=== PATIENT | female | born 1970 | race Caucasian/White ===

== ENCOUNTER 2022-09-02 12:04 | Outpatient (REF) | payer OTHER, SELFPAY ==
--- NOTE | ~2022-09-02 | XR_ITS ---
EXAMINATION: XR LUMBOSACRAL SPINE CLINICAL INFORMATION: Worsening low back pain COMPARISON: CT abdomen pelvis 11/19/2016 TECHNIQUE: Three views of the lumbosacral spine. FINDINGS: The vertebral bodies and posterior elements are unremarkable aside from some minimal spondylitic change plate changes most prominent at the inferior endplates of L2 and L3-L4.. The disc spaces are preserved and the vertebral alignment is normal. The paraspinal soft tissues are normal. XR/XR lumbar spine 2-3V IMPRESSION: Minimal degenerative changes as described above. No acute finding.
== END 2022-09-02 12:05 | disposition home or self-care (01) ==
LOC: HO.HHCX 12:04
PROVIDERS: Visit Provider Registered Nurse
DX: M54.16 Radiculopathy, lumbar region (principal)
CPT/HCPCS: 72100

== ENCOUNTER 2022-12-04 08:56 | Outpatient (REF) | payer OTHER, SELFPAY ==
[2022-12-04 14:16] LABS: MANUAL DIFF FLAG NO
[2022-12-04 14:25] LABS: Basophils Percent Auto 0.5 % (0-2); Eosinophils Absolute Auto 0.1 X10*3/uL (0.0-0.4); Eosinophils Percent Auto 2.2 % (0-4); Hemoglobin 13.9 g/dl (12.0-16.0); Imm Gran Abs Auto 0.01 X10*3/uL (0.00-0.03); Imm Gran Pct Auto 0.2 % (0.0-0.4); Lymphocytes Absolute Auto 1.8 X10*3/uL (1.2-4.9); Lymphocytes Percent Auto 32.2 % (20-40); Mean Corpuscular HGB Conc 32.3 g/dl (31.0-35.0); Mean Corpuscular Hemoglobin 30.2 pg (27.0-33.0); Mean Corpuscular Volume 93.5 fL (80.0-98.0); Mean Platelet Volume 9.9 fL (9.4-12.3); Monocytes Absolute Auto 0.4 X10*3/uL (0.1-1.2); Monocytes Percent Auto 7.9 % (2-11); Neutrophils Absolute Auto 3.2 x10*3/uL (2.0-8.3); Platelet Count 364 X10*3/uL (160-400); Red Cell Distribution Width 13.7 % (11.0-16.0); White Blood Count 5.6 X10*3/uL (4.8-10.8)
[2022-12-04 14:56] LABS: Alanine Aminotransferase 23 U/L (0-31); Albumin Level 4.3 g/dL (3.5-5.0); Alkaline Phosphatase 82 U/L (39-117); Anion Gap 16 (12-20); Aspartate Amino Transferase 21 U/L (5-31); Bilirubin Total 0.6 mg/dL (0.0-1.0); Blood Urea Nitrogen 22 mg/dL (9-16); Calcium 9.8 mg/dL (8.4-10.2); Carbon Dioxide 21 mmol/L (22-29); Chloride 108 mmol/L (96-108); Cholesterol 225 mg/dL (<200); Estimated Glomerular Filt Rate > 60; Glucose Fasting 103 mg/dL (60-99); HDL Cholesterol 47 mg/dL (>40); LDL Cholesterol Calculated 147 mg/dL (<100); Potassium 3.6 mmol/L (3.3-5.1); Sodium 141 mmol/L (135-145); TSH reflex Free T4 0.87 uIU/mL (0.32-4.0); Total Protein 7.9 g/dL (6.5-8.0); Triglycerides 155 mg/dL (<150)
[2022-12-04 15:10] LABS: Estimated Average Glucose 100 mg/dL; Hemoglobin A1c % 5.1 % (<6.0)
[2022-12-05 14:40] LABS: ~HepC Num1 0.11 S/CO (0.00-0.79); ~Hepatitis C Antibody Nonreactive (Nonreactive)
[2022-12-08 20:04] LABS: HIV RNA PCR Qn Copies Not Detected Copies/mL; HIV RNA PCR Qn Log Copies Not Detected Log cps/mL
== END 2022-12-04 08:57 | disposition home or self-care (01) ==
LOC: HO.CHCLDS 08:56
PROVIDERS: Visit Provider Internal Medicine
DX: I10 Essential (primary) hypertension (principal); E78.2 Mixed hyperlipidemia
CPT/HCPCS: 36415; 80053; 80061; 83036; 84443; 85025; 86803; 87536; 87900

== ENCOUNTER → 2022-12-22 14:00 | Outpatient (BNVA) | payer OTHER, SELFPAY | PROVIDERS: PCP Internal Medicine; Visit Provider Physician Assistant ==

== ENCOUNTER 2022-12-23 14:03 | Outpatient (REF) | payer OTHER, SELFPAY ==
--- NOTE | ~2022-12-23 | MM_ITS ---
EXAMINATION: MM DIAGNOSTIC DIGITAL BREAST TOMOSYNTHESIS, BILATERAL CLINICAL INFORMATION: 52-year-old female complaining of bilateral palpable foci in the upper inner quadrants of both breasts. COMPARISON: Mammography: 06/25/2016 TECHNIQUE: Digital breast tomosynthesis is performed in both the craniocaudal and mediolateral oblique views along with computer-aided detection (CAD). Synthesized 2D images are generated from the tomosynthesis. FINDINGS: The breasts are heterogeneously dense, which may obscure small masses (ACR BI-RADS breast composition Category c). There are no suspicious masses, suspicious grouped calcifications, or areas of architectural distortion. Stable loosely grouped punctate calcifications in the superior right breast. The parenchymal pattern is stable from prior exams. No mammographic correlate to the foci of palpable concern outer inner breasts bilaterally. Recommend these areas be evaluated by ultrasound. MM/MM tomosynthesis diagnostic BI IMPRESSION: No significant mammographic findings to explain palpable abnormalities upper inner quadrant both breasts. These areas will be evaluated by ultrasound. Patient will return for this study. ASSESSMENT: BI-RADS BI-RADS 0 - Incomplete: Needs additional Imaging. RECOMMENDATION: Additional Imaging required Results were provided to the patient at time of visit by the technologist. This patient's information was entered into a reminder system with a target due date for their next mammogram.
== END 2022-12-23 14:04 | disposition home or self-care (01) ==
LOC: HO.MAMMO 14:03
PROVIDERS: Visit Provider Internal Medicine
DX: N63.12 Unspecified lump in the right breast, upper inner quadrant (principal)
CPT/HCPCS: 77062; 77066

== ENCOUNTER → 2022-12-23 14:30 | Outpatient (BNV) | payer OTHER, SELFPAY | PROVIDERS: Visit Provider Radiology Diagnostic Radiology | DX: R92.2 Inconclusive mammogram (principal) | CPT/HCPCS: 77062; 77066 ==

== ENCOUNTER 2023-01-15 10:33 | Outpatient (AMB) | payer OTHER, SELFPAY ==
--- NOTE | 2023-01-15 10:36 | A.OFFVIS_ITS ---
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 BMI 38.5 Allergies latex Allergy (Verified 01/15/23 10:37) Unknown Medication List - Last Reconciled 01/15/23 by Tung Salgado MD albuterol sulfate 90 mcg/actuation (Ventolin HFA) inhalation atorvastatin 20 mg PO DAILY duloxetine 30 mg PO BID fluticasone propionate 110 mcg/actuation (Flovent HFA) 2 puffs inhalation BID hydroxyzine HCl 25 mg PO TID ibuprofen 800 mg PO TID lisinopril-hydrochlorothiazide 20-25 mg 1 tab PO DAILY loratadine 10 mg PO DAILY melatonin mg PO omeprazole 20 mg PO DAILY HPI [employer]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 BMI 38.5 HPI Details Start time: 10.30am, End time: 11.18am ?I spent 43 minutes speaking with the patient on the phone plus an additional 5 minutes reviewing and updating records for a total of 48 minutes HPI Comments History of Present Illness Details Previous weight loss efforts: self diets and exercise: Wakes up: 10.30am, Sleeps: 1am Breakfast: skips Lunch: skips Dinner: 4pm (pork, rice, beans, tuna) Snacks: 2 snacks before dinner (chips, lettuce and tomatoes, salami and eggs), 10pm (cereal) Exercise: none, Fluids: Fluids: occasionally one cup of coffee (milk and sugar), tea: none, soda: none, juice: Regular Gatorade, ETOH: none PFSH Medical History (Updated 01/15/23 @ 10:43 by Tung Salgado MD) Insomnia Hyperlipidemia GERD (gastroesophageal reflux disease) Fibromyalgia Anxiety Depression Asthma Hypertension Family History (Updated 12/22/22 @ 14:16 by MARIO Toro) Mother No problems noted. Father Cancer Son No problems noted. Daughter No problems noted. Son No problems noted. Daughter No problems noted. Daughter No problems noted. Social History (Updated 12/22/22 @ 14:18 by MARIO Toro) Household Members: Children Housing: House Alcohol intake: current Alcohol intake frequency: holidays/special occasions only Patient Tobacco Use Status: Current everyday Tobacco user Substance Use Type: Marijuana Current occupational status: unemployed Assessment & Plan Assessment & Plan (1) Obesity: Code(s): E66.9 - Obesity, unspecified Plan: 1.? Plan for lap sleeve gastrectomy. If diaphragmatic or ventral hernias are present at time of surgery, these will be repaired laparoscopically as well. Risks and complications were discussed in detail including possible conversion to an open procedure, anastomotic leak, bleeding requiring transfusion, small bowel obstruction, , DVT and pulmonary embolism, cardiac, or pulmonary complications, as oysterman complications such as anastomotic ulcer, insufficient weight loss and vitamin deficiencies. I emphasized the importance of close follow-up, adherence to instructions and good communication. 2. Nutritional counseling. Start with 2 Isopure protein (buy at [employer], [employer], [employer], [employer]) shakes (HALF scoop EACH in 8oz water) at 11am-1pm and 2pm-4pm, dinner at 5pm (8 forks of protein and 8 forks of salad/vegetables) and 2 protein bars (Zone Perfect protein bars, buy at [employer], ?[employer], [employer], or [employer]) at 7pm- 9pm and 10pm-12am. So you do 2 protein shakes, 2 protein bars and one meal per day. Meal to include lean meat (beef, fish, pork, turkey, chicken), or indonesian yogurt, or egg whites, or beans with a salad with olive oil and fruits (berries, pears, apples, kiwi). Avoid salt, breads, potatoes, rice, pasta, desserts. 3. Each shake would be drunk slowly, like coffee in a period of 2 hours. 4. Cut each bar in 4 pieces and eat each piece in 30min ?to make each bar last 2 hours. 5. I emphasized the importance of measuring accurately the food portion and measure it when serving the food in plate 6. The meal portions include 8 full-size forks of meat and 8 full-size forks of salad. You always eat the meat portion but you can replace up to 4 forks for salad/vegetables with rice, potatoes or pasta, or a fruit ?if you like. The less you do it the better weight loss will be. 7. One full-size fork is what it can be scooped on the fork without falling aside and not what can be bit with the fork. Use regular forks like those you find in a typical restaurant. 8.? Please send me weight measurements as soon as possible and then once a week. Always include your diet and exercise plan. 9. Please purchase a stationary bike, elliptical or treadmill at home that can track calories. Let me know if you do so I can give you an exercise plan. 10.?If you are not on menopause, it is important of avoiding and for at least 18 months postoperatively and has been discussed at the infosession. 11. Goal is to lose at least 1.5-2lbs per week 12. Goal to lose 10% of your weight before surgery, which is about 22lbs. Ultimate weight goal: 202lbs before surgery 13. Please follow the diet plan exactly without any change. If you don't like something about the plan or you feel hungry you need to communicate with me so I can help you revise the plan. You should not change the plan yourself. (2) BMI 38.0-38.9,adult: Code(s): Z68.38 - Body mass index [BMI] 38.0-38.9, adult (3) Hypertension: Code(s): I10 - Essential (primary) hypertension (4) Asthma: Code(s): J45.909 - Unspecified asthma, uncomplicated (5) GERD (gastroesophageal reflux disease): Code(s): K21.9 - Gastro-esophageal reflux disease without esophagitis (6) Hyperlipidemia: Code(s): E78.5 - Hyperlipidemia, unspecified Orders: Orders Zinc Today E66.9 - Obesity, unspecified, E78.5 - Hyperlipidemia, unspecified, I10 - Essential (primary) hypertension, J45.909 - Unspecified asthma, uncomplicated, K21.9 - Gastro-esophageal reflux disease without esophagitis, Z68.38 - Body mass index [BMI] 38.0-38.9, adult Comprehensive Met. Panel Today E66.9 - Obesity, unspecified, E78.5 - Hyperlipidemia, unspecified, I10 - Essential (primary) hypertension, J45.909 - Unspecified asthma, uncomplicated, K21.9 - Gastro-esophageal reflux disease without esophagitis, Z68.38 - Body mass index [BMI] 38.0-38.9, adult C Reactive Protein Today E66.9 - Obesity, unspecified, E78.5 - Hyperlipidemia, unspecified, I10 - Essential (primary) hypertension, J45.909 - Unspecified asthma, uncomplicated, K21.9 - Gastro-esophageal reflux disease without esophagitis, Z68.38 - Body mass index [BMI] 38.0-38.9, adult TSH reflex Free T4 Today E66.9 - Obesity, unspecified, E78.5 - Hyperlipidemia, unspecified, I10 - Essential (primary) hypertension, J45.909 - Unspecified asthma, uncomplicated, K21.9 - Gastro-esophageal reflux disease without esophagitis, Z68.38 - Body mass index [BMI] 38.0-38.9, adult H Pylori Breath Test Today E66.9 - Obesity, unspecified, E78.5 - Hyperlipidemia, unspecified, I10 - Essential (primary) hypertension, J45.909 - Unspecified asthma, uncomplicated, K21.9 - Gastro-esophageal reflux disease without esophagitis, Z68.38 - Body mass index [BMI] 38.0-38.9, adult US abdomen comp w elastography Today E66.9 - Obesity, unspecified, E78.5 - Hyperlipidemia, unspecified, I10 - Essential (primary) hypertension, J45.909 - Unspecified asthma, uncomplicated, K21.9 - Gastro-esophageal reflux disease without esophagitis, Z68.38 - Body mass index [BMI] 38.0-38.9, adult XR chest 2V Today E66.9 - Obesity, unspecified, E78.5 - Hyperlipidemia, unspecified, I10 - Essential (primary) hypertension, J45.909 - Unspecified asthma, uncomplicated, K21.9 - Gastro-esophageal reflux disease without esophagitis, Z68.38 - Body mass index [BMI] 38.0-38.9, adult ECG 12 lead EKG Today E66.9 - Obesity, unspecified, E78.5 - Hyperlipidemia, unspecified, I10 - Essential (primary) hypertension, J45.909 - Unspecified asthma, uncomplicated, K21.9 - Gastro-esophageal reflux disease without esophagitis, Z68.38 - Body mass index [BMI] 38.0-38.9, adult FL upper GI w air Today E66.9 - Obesity, unspecified, E78.5 - Hyperlipidemia, unspecified, I10 - Essential (primary) hypertension, J45.909 - Unspecified asthma, uncomplicated, K21.9 - Gastro-esophageal reflux disease without esophagitis, Z68.38 - Body mass index [BMI] 38.0-38.9, adult Insulin Today E66.9 - Obesity, unspecified, E78.5 - Hyperlipidemia, unspecified, I10 - Essential (primary) hypertension, J45.909 - Unspecified asthma, uncomplicated, K21.9 - Gastro-esophageal reflux disease without esophagitis, Z68.38 - Body mass index [BMI] 38.0-38.9, adult Lipid Panel Today E66.9 - Obesity, unspecified, E78.5 - Hyperlipidemia, unspecified, I10 - Essential (primary) hypertension, J45.909 - Unspecified asthma, uncomplicated, K21.9 - Gastro-esophageal reflux disease without esophagitis, Z68.38 - Body mass index [BMI] 38.0-38.9, adult IRON PROFILE Today E66.9 - Obesity, unspecified, E78.5 - Hyperlipidemia, unspecified, I10 - Essential (primary) hypertension, J45.909 - Unspecified asthm a, uncomplicated, K21.9 - Gastro-esophageal reflux disease without esophagitis, Z68.38 - Body mass index [BMI] 38.0-38.9, adult Complete Blood Count Auto Diff Today E66.9 - Obesity, unspecified, E78.5 - Hyperlipidemia, unspecified, I10 - Essential (primary) hypertension, J45.909 - Unspecified asthma, uncomplicated, K21.9 - Gastro-esophageal reflux disease without esophagitis, Z68.38 - Body mass index [BMI] 38.0-38.9, adult Vitamin B12 and Folate Today E66.9 - Obesity, unspecified, E78.5 - Hyperlipidemia, unspecified, I10 - Essential (primary) hypertension, J45.909 - Unspecified asthma, uncomplicated, K21.9 - Gastro-esophageal reflux disease without esophagitis, Z68.38 - Body mass index [BMI] 38.0-38.9, adult Vitamin B1 Today E66.9 - Obesity, unspecified, E78.5 - Hyperlipidemia, unspecified, I10 - Essential (primary) hypertension, J45.909 - Unspecified asthma, uncomplicated, K21.9 - Gastro-esophageal reflux disease without esophagitis, Z68.38 - Body mass index [BMI] 38.0-38.9, adult Vitamin A Today E66.9 - Obesity, unspecified, E78.5 - Hyperlipidemia, unspecified, I10 - Essential (primary) hypertension, J45.909 - Unspecified asthma, uncomplicated, K21.9 - Gastro-esophageal reflux disease without esophagitis, Z68.38 - Body mass index [BMI] 38.0-38.9, adult Ferritin Today E66.9 - Obesity, unspecified, E78.5 - Hyperlipidemia, unspecified, I10 - Essential (primary) hypertension, J45.909 - Unspecified asthma, uncomplicated, K21.9 - Gastro-esophageal reflux disease without esophagitis, Z68.38 - Body mass index [BMI] 38.0-38.9, adult PTHI Today E66.9 - Obesity, unspecified, E78.5 - Hyperlipidemia, unspecified, I10 - Essential (primary) hypertension, J45.909 - Unspecified asthma, uncomplicated, K21.9 - Gastro-esophageal reflux disease without esophagitis, Z68.38 - Body mass index [BMI] 38.0-38.9, adult Vitamin D 25-OH Total Today E66.9 - Obesity, unspecified, E78.5 - Hyperlipidemia, unspecified, I10 - Essential (primary) hypertension, J45.909 - Unspecified asthma, uncomplicated, K21.9 - Gastro-esophageal reflux disease without esophagitis, Z68.38 - Body mass index [BMI] 38.0-38.9, adult Hemoglobin A1c Today E66.9 - Obesity, unspecified, E78.5 - Hyperlipidemia, unspecified, I10 - Essential (primary) hypertension, J45.909 - Unspecified asthma, uncomplicated, K21.9 - Gastro-esophageal reflux disease without esophagitis, Z68.38 - Body mass index [BMI] 38.0-38.9, adult RT home sleep study Today E66.9 - Obesity, unspecified, E78.5 - Hyperlipidemia, unspecified, I10 - Essential (primary) hypertension, J45.909 - Unspecified asth ma, uncomplicated, K21.9 - Gastro-esophageal reflux disease without esophagitis, Z68.38 - Body mass index [BMI] 38.0-38.9, adult Referrals Behavioral Health Referral E66.9 - Obesity, unspecified, E78.5 - Hyperlipidemia, unspecified, I10 - Essential (primary) hypertension, J45.909 - Unspecified asthma, uncomplicated, K21.9 - Gastro-esophageal reflux disease without esophagitis, Z68.38 - Body mass index [BMI] 38.0-38.9, adult Nutrition/Dietitian Referral E66.9 - Obesity, unspecified, E78.5 - Hyperlipidemia, unspecified, I10 - Essential (primary) hypertension, J45.909 - Unspecified asthma, uncomplicated, K21.9 - Gastro-esophageal reflux disease without esophagitis, Z68.38 - Body mass index [BMI] 38.0-38.9, adult Telehealth Telehealth Location of provider rendering services: practice address Location of patient: address on file Patient Identification confirmed using: Name, : Yes Telehealth method: voice only Patient verbally consented to treatment: Yes Patient verbally consented to billing insurance company: Yes Patient informed of any privacy concerns related to visit: Yes Minutes spent on Phone/Video with Pt.: 48 Coding Level of Care Code Tele New Pt Level 4 (10969) Diagnoses Obesity E66.9 BMI 38.0-38.9,adult Z68.38 Hypertension I10 Asthma J45.909 GERD (gastroesophageal reflux disease) K21.9 Hyperlipidemia E78.5 Time Spent (min) 48
[2023-01-15 10:50] VITALS: BMI 38.5
== END 2023-01-15 11:20 | disposition home or self-care (01) ==
LOC: HO.HBS 10:33
PROVIDERS: PCP Internal Medicine; Visit Provider Surgery
DX: E66.9 Obesity, unspecified (principal); Z68.38 Body mass index [BMI] 38.0-38.9, adult; I10 Essential (primary) hypertension; J45.909 Unspecified asthma, uncomplicated; K21.9 Gastro-esophageal reflux disease without esophagitis; E78.5 Hyperlipidemia, unspecified
CPT/HCPCS: 99443

== ENCOUNTER 2023-01-22 10:22 | Outpatient (REF) | payer OTHER, SELFPAY ==
--- NOTE | ~2023-01-22 | US_ITS ---
EXAMINATION: US DIAGNOSTIC ULTRASOUND BREAST, BILATERAL CLINICAL INFORMATION: 52-year-old female complaining of bilateral palpable foci in the upper inner quadrants of both breasts.. COMPARISON: 12/23/2022 diagnostic mammography for same indication. Patient return for diagnostic ultrasound. TECHNIQUE: Ultrasound of the bilateral breasts is performed with real-time perrin scale imaging and color Doppler. Attention was given to the palpable foci left breast 8-10 o'clock axis, and right breast 2-4 o'clock axis. FINDINGS: There is no focal suspicious finding bilaterally. There is no solid mass, architectural abnormality, duct ectasia, or edema in the soft tissue planes. There are no cystic abnormalities. Only normal breast parenchyma is identified in both breasts. US/US breast BI limited mamm only IMPRESSION: No findings suspicious for malignancy bilaterally. Palpable foci in the upper inner quadrants of both breasts demonstrate no mammographic or sonographic correlate. Recommend clinical management. Biopsy of a palpable abnormality without imaging correlation must be determined on a clinical basis. Otherwise, recommend return to routine screening mammography. Findings discussed with the patient by the technologist. ASSESSMENT: BI-RADS 1: Negative RECOMMENDATION: 1. Patient should be managed based on the clinical impression. Decision to proceed with biopsy should be based on clinical grounds and degree of clinical concern. 2. Otherwise, routine annual screening mammography. This patient's information was entered into a reminder system with a target due date for their next mammogram.
== END 2023-01-22 10:23 | disposition home or self-care (01) ==
LOC: HO.MAMMO 10:22
PROVIDERS: PCP Internal Medicine; Visit Provider Internal Medicine
DX: N63.12 Unspecified lump in the right breast, upper inner quadrant (principal); N63.22 Unspecified lump in the left breast, upper inner quadrant
CPT/HCPCS: 76642

== ENCOUNTER → 2023-01-22 10:30 | Outpatient (BNV) | payer OTHER, SELFPAY | PROVIDERS: PCP Internal Medicine; Visit Provider Radiology Diagnostic Radiology | DX: D24.9 Benign neoplasm of unspecified breast (principal) | CPT/HCPCS: 76642 ==

== ENCOUNTER 2023-02-11 09:34 | Outpatient (REF) | payer OTHER, SELFPAY ==
--- NOTE | ~2023-02-11 | XR_ITS ---
EXAMINATION: XR CHEST CLINICAL INFORMATION: Obesity, unspecified COMPARISON: None available. TECHNIQUE: 2 views of the chest were obtained. 10:30 AM FINDINGS: No significant abnormality is noted involving the heart, lungs, mediastinum, bony thorax or soft tissues. XR/XR chest 2V IMPRESSION: No acute cardiopulmonary disease.
--- NOTE | ~2023-02-11 | US_ITS ---
EXAMINATION: US COMPLETE ABDOMEN WITH LIVER ELASTOGRAPHY CLINICAL INFORMATION: Obesity. COMPARISON: Abdominal ultrasound dated 03/25/2017; CT abdomen and pelvis dated 11/19/2016. TECHNIQUE: Real-time imaging of the abdominal viscera. Noninvasive ultrasound liver fibrosis assessment is performed using [employer]akenna Elast[employer] point quantification shear wave elastography (2D-SWE) with a C5-2 MHz transducer. Multiple elastography samples are obtained. FINDINGS: PANCREAS: Limited. The visualized pancreatic head and body are normal in appearance. The remainder of the pancreas is obscured from visualization by the overlying bowel gas. ABDOMINAL AORTA: The proximal, middle, and distal aortic segments are normal in caliber. INFERIOR VENA CAVA: Visualized portions are normal. LIVER: The liver demonstrates normal size, contour and increased echogenicity. No focal lesion or intrahepatic biliary duct dilatation. The right lobe measures 14.0 cm in length. The left lobe measures 10.1 cm in length. Portal flow is towards the liver (hepatopetal). Shear wave liver elastography median stiffness is 1.50 m/s (reference: normal median stiffness is 1.3 m/s or less). IQR/median stiffness to assess sampling precision is 0.12 (reference: good quality data set is IQR/median stiffness of 0.15 or less). GALLBLADDER: Normal. The gallbladder is physiologically distended without evidence of stones, sludge, polyps, wall thickening or pericholecystic fluid. COMMON BILE DUCT: Normal in caliber measuring 0.4 cm in diameter. RIGHT KIDNEY: Normal. No hydronephrosis. No renal calculi or focal parenchymal lesions. The kidney measures 11.6 cm in maximum dimension. LEFT KIDNEY: Normal. No hydronephrosis. No renal calculi or focal parenchymal lesions. The kidney measures 10.2 cm in maximum dimension. SPLEEN: Normal. The spleen measures 8.6 cm in maximum dimension. FREE FLUID: None. US/US abdomen comp w elastography IMPRESSION: 1. There is generalized increase in hepatic echotexture, consistent with fatty infiltration or hepatocellular disease. Please correlate clinically. No focal hepatic mass or intrahepatic biliary dilatation is seen. 2. Liver elastography: In the absence of other known clinical signs, measurements rule out compensated advanced chronic liver disease. If there are known clinical signs, further testing may be needed for confirmation. 3. Technically limited ultrasound examination of the pancreas. REFERENCE: Society of Radiologists in Ultrasound Liver Stiffness Thresholds (2020): LIVER STIFFNESS THRESHOLDS: *Liver Stiffness equal or less than 1.3 m/s: High probability of being normal. *Liver Stiffness less than 1.7 m/s: In the absence of other known clinical signs, rules out compensated advanced chronic liver disease. *Liver Stiffness 1.7-2.1 m/s: Suggestive of compensated advanced chronic liver disease but need further test for confirmation. *Liver Stiffness over 2.1 m/s: Rules in compensated advanced chronic liver disease. *Liver Stiffness over 2.4 m/s: Suggestive of clinically significant portal hypertension. QUALITY OF DATA SET: *IQR/Median value equal or less than 0.15 implies a quality data set. *IQR/Median value over 0.15 implies a poor quality data set. SIGNIFICANT CHANGE FROM PRIOR EXAM: Significant change if liver stiffness measurement is 10% or greater from prior exam. OTHER CONSIDERATIONS: The stage of liver fibrosis may be overestimated in the setting of acute hepatitis, liver inflammation, elevated liver function tests, hepatic vascular congestion, obstructive cholestasis, non-fasting state, and infiltrative diseases such as amyloidosis and lymphoma. In some patients with NAFLD, the liver stiffness thresholds for compensated advanced chronic liver disease may be lower. In causes other than viral hepatitis and NAFLD, liver stiffness thresholds are not well established.
--- NOTE | ~2023-02-11 | FL_ITS ---
EXAMINATION: XR FLUOROSCOPY UPPER GI WITH AIR CLINICAL INFORMATION: Preop evaluation prior to bariatric surgery COMPARISON: None TECHNIQUE: Fluoroscopic air contrast upper GI examination was performed utilizing standard techniques with thin and thick barium and effervescent granules. Numerous spot images were obtained. FINDINGS: Lateral cine images of the oropharynx and hypopharynx demonstrate normal swallow mechanism with normal epiglottic inversion and soft palate elevation. No tracheal penetration, glottic or subglottic aspiration identified. No nasopharyngeal reflux present. Hypopharyngeal structures appear normal without evidence of mass or diverticulum. There was no significant cricopharyngeal achalasia. Dual and single contrast images of the esophagus demonstrate normal caliber, contour, and mucosal pattern. No evidence stricture, mass, or ulcerations are identified. Esophageal peristalsis was normal. A small type I hiatal hernia is present. No significant gastroesophageal reflux was seen during the course of the examination and on reflux views. Dual contrast and single contrast images of the stomach demonstrated normal contour and mucosal pattern without evidence of mass, ulceration, or other abnormality. Contrast freely passed into the gastric antrum and duodenal bulb without delay. Single and air-contrast images of the duodenal bulb demonstrate no abnormality. The duodenal sweep has a normal appearance, course, and mucosal fold appearance. The imaged proximal jejunum has a normal fold pattern and caliber. FLUOROSCOPY TIME: 3 minutes Number of Spot Images: 9 Number of Cine: 9 DOSE AREA PRODUCT: 2463 uGy-m2 (microgray-meter squared) FL/FL upper GI w air IMPRESSION: 1. Small type I hiatal hernia otherwise normal examination This procedure was performed by Karlos Washington PA-C, and supervised by Dr. Hargrove
--- NOTE | 2023-02-11 10:39 | ECG_ITS ---
Test Reason : obesity Blood Pressure : / mmHG Vent. Rate : 069 BPM Atrial Rate : 069 BPM P-R Int : 138 ms QRS Dur : 088 ms QT Int : 402 ms P-R-T Axes : 054 069 030 degrees QTc Int : 430 ms Sinus rhythm with Premature atrial complexes Otherwise normal ECG When compared with ECG of 13-DEC-2010 12:20, Premature atrial complexes are now Present Referred By: Tung Salgado Electronically Signed By:TERRA OVIEDO MD
[2023-02-11 10:52] LABS: MANUAL DIFF FLAG NO
[2023-02-11 12:03] LABS: Basophils Percent Auto 0.3 % (0-2); Eosinophils Absolute Auto 0.1 X10*3/uL (0.0-0.4); Eosinophils Percent Auto 1.7 % (0-4); Hematocrit 42.8 % (37.0-47.0); Hemoglobin 13.9 g/dl (12.0-16.0); Imm Gran Abs Auto 0.02 X10*3/uL (0.00-0.03); Imm Gran Pct Auto 0.3 % (0.0-0.4); Lymphocytes Absolute Auto 1.6 X10*3/uL (1.2-4.9); Lymphocytes Percent Auto 26.9 % (20-40); Mean Corpuscular HGB Conc 32.5 g/dl (31.0-35.0); Mean Corpuscular Hemoglobin 30.2 pg (27.0-33.0); Mean Corpuscular Volume 92.8 fL (80.0-98.0); Mean Platelet Volume 10.2 fL (9.4-12.3); Monocytes Absolute Auto 0.4 X10*3/uL (0.1-1.2); Monocytes Percent Auto 6.1 % (2-11); Neutrophils Absolute Auto 3.7 x10*3/uL (2.0-8.3); Neutrophils Percent Auto 64.7 % (45-73); Platelet Count 317 X10*3/uL (160-400); Red Blood Count 4.61 X10*6/uL (4.20-5.50); Red Cell Distribution Width 13.3 % (11.0-16.0); White Blood Count 5.8 X10*3/uL (4.8-10.8)
[2023-02-11 12:16] LABS: Estimated Average Glucose 105 mg/dL; Hemoglobin A1c % 5.3 % (<6.0)
[2023-02-11 13:04] LABS: Alanine Aminotransferase 17 U/L (0-31); Albumin Level 4.1 g/dL (3.5-5.0); Alkaline Phosphatase 82 U/L (39-117); Anion Gap 11 (12-20); Aspartate Amino Transferase 17 U/L (5-31); Bilirubin Total 0.5 mg/dL (0.0-1.0); Blood Urea Nitrogen 10 mg/dL (9-16); C Reactive Protein 0.38 mg/dL (< or = 0.50); Calcium 9.2 mg/dL (8.4-10.2); Carbon Dioxide 25 mmol/L (22-29); Chloride 109 mmol/L (96-108); Cholesterol 200 mg/dL (<200); Estimated Glomerular Filt Rate > 60; Glucose Random 100 mg/dL (60-115); HDL Cholesterol 45 mg/dL (>40); Iron 96 mcg/dL (30-160); LDL Cholesterol Calculated 129 mg/dL (<100); Percent Iron Saturation 32 % (15-50); Sodium 141 mmol/L (135-145); Total Iron Binding Capacity 297 mcg/dL (228-428); Total Protein 7.6 g/dL (6.5-8.0); Triglycerides 134 mg/dL (<150); Unsaturated Iron Binding 201 ug/dL
[2023-02-11 13:06] LABS: Ferritin 89 ng/mL (10-250); Insulin 15 uU/mL (2-29); TSH reflex Free T4 0.84 uIU/mL (0.32-4.0); Vitamin D 25-OH Total 15.3 ng/mL (>30)
[2023-02-11 13:12] LABS: Folate 13.9 ng/mL (> or = 4.0); Vitamin B12 469 pg/mL (200-900)
[2023-02-13 16:13] LABS: Zinc 78 mcg/dL (60-130)
[2023-02-15 17:17] LABS: Calcium (PTHI) 9.3 mg/dL (8.6-10.4); PTHI 66 pg/mL (16-77)
[2023-02-16 17:43] LABS: Vitamin A 33 mcg/dL (38-98)
[2023-02-17 12:53] LABS: Vitamin B1 7 nmol/L (8-30)
== END 2023-02-11 09:35 | disposition home or self-care (01) ==
LOC: HO.US 09:34
PROVIDERS: PCP Internal Medicine; Visit Provider Surgery
DX: E66.9 Obesity, unspecified (principal); Z68.38 Body mass index [BMI] 38.0-38.9, adult; I10 Essential (primary) hypertension; J45.909 Unspecified asthma, uncomplicated; K21.9 Gastro-esophageal reflux disease without esophagitis; E78.5 Hyperlipidemia, unspecified
CPT/HCPCS: 36415; 71046; 74246; 76705; 76981; 80053; 80061; 82306; 82607; 82728; 82746; 83036; 83525; 83540; 83970; 84425; 84443; 84590; 84630; 85025; 86140; 93005

== ENCOUNTER → 2023-02-11 10:43 | Outpatient (BNV) | payer OTHER, SELFPAY | PROVIDERS: PCP Internal Medicine; Visit Provider Radiology Diagnostic Radiology | DX: E66.9 Obesity, unspecified (principal) | CPT/HCPCS: 74246 ==

== ENCOUNTER 2023-02-15 08:20 | Outpatient (AMB) | payer OTHER, SELFPAY ==
--- NOTE | 2023-02-15 10:41 | MHC.OFFVISWM ---
Intake Intake Visit Reasons: TV Follow Up SWL - 1ST Allergies latex Allergy (Verified 01/15/23 10:37) Unknown HPI TV Follow Up SWL - 1ST HPI Details Start time: 10.33am, End time: 11.03am ?I spent 25 minutes speaking with the patient on the phone plus an additional 5 minutes reviewing and updating records for a total of 30 minutes HPI Comments History of Present Illness Details Overall weight loss: 6lbs, or 2.68% TBWL Is doing 2 Isopure INFUSION protein shakes (HALF scoop in water), Z [facility] Medical History (Updated 02/11/23 @ 16:01 by Tung Salgado MD) Insomnia Hyperlipidemia GERD (gastroesophageal reflux disease) Fibromyalgia Anxiety Depression Asthma Hypertension Family History (Updated 12/22/22 @ 14:16 by MARIO Toro) Mother No problems noted. Father Cancer Son No problems noted. Daughter No problems noted. Son No problems noted. Daughter No problems noted. Daughter No problems noted. Social History (Updated 12/22/22 @ 14:18 by MARIO Toro) Household Members: Children Housing: House Alcohol intake: current Alcohol intake frequency: holidays/special occasions only Patient Tobacco Use Status: Current everyday Tobacco user Substance Use Type: Marijuana Current occupational status: unemployed Assessment & Plan Assessment & Plan (1) Obesity: Code(s): E66.9 - Obesity, unspecified Plan: 1. Please follow the correct plan with 2 Isopure protein (buy at [employer]) shakes (HALF scoop EACH in 8oz water) at 11am-1pm and 2pm-4pm, dinner at 5pm (8 forks of protein and 8 forks of salad/vegetables) and 2 CELEBRATE protein bars (buy at the [facility]) at 7pm-9pm and 10pm-12am. So you do 2 protein shakes, 2 protein bars and one meal per day. Meal to include lean meat (beef, fish, pork, turkey, chicken), or spanish yogurt, or egg whites, or beans with a salad with olive oil and fruits (berries, pears, apples, kiwi). Avoid salt, breads, potatoes, rice, pasta, desserts. 2. Each shake would be drunk slowly, like coffee in a period of 2 hours. 3. Cut each bar in 4 pieces and eat each piece in 30min ?to make each bar last 2 hours. 4. I emphasized the importance of measuring accurately the food portion and measure it when serving the food in plate 5. The meal portions include 8 full-size forks of meat and 8 full-size forks of salad. You always eat the meat portion but you can replace up to 4 forks for salad/vegetables with rice, potatoes or pasta, or a fruit ?if you like. The less you do it the better weight loss will be. 6. One full-size fork is what it can be scooped on the fork without falling aside and not what can be bit with the fork. Use regular forks like those you find in a typical restaurant. 7. Please send me a picture of your meal daily after you measure it and before you eat it. 8.? Please send me weight measurements weekly on 9. Please do your home treadmill daily at a speed of 4 mph for 300 calories. (2) BMI 38.0-38.9,adult: Code(s): Z68.38 - Body mass index [BMI] 38.0-38.9, adult Telehealth Telehealth Location of provider rendering services: practice address Location of patient: address on file Patient Identification confirmed using: Name, : Yes Telehealth method: voice only Patient verbally consented to treatment: Yes Patient verbally consented to billing insurance company: Yes Patient informed of any privacy concerns related to visit: Yes Minutes spent on Phone/Video with Pt.: 30 Coding Level of Care Code Tele Est Pt Level 4 (35819) Diagnoses Obesity E66.9 BMI 38.0-38.9,adult Z68.38 Time Spent (min) 30
== END 2023-02-15 11:04 | disposition home or self-care (01) ==
LOC: HO.HBS 08:20
PROVIDERS: PCP Internal Medicine; Visit Provider Surgery
DX: E66.9 Obesity, unspecified (principal); Z68.38 Body mass index [BMI] 38.0-38.9, adult
CPT/HCPCS: 99443

== ENCOUNTER → 2023-02-15 08:20 | Outpatient (BNVA) | payer OTHER, SELFPAY | PROVIDERS: PCP Internal Medicine; Visit Provider Surgery ==

== ENCOUNTER 2023-02-18 10:40 | Outpatient (REF) | payer OTHER, SELFPAY ==
[2023-02-20 09:09] LABS: H Pylori Breath Test Positive (Negative)
== END 2023-02-18 10:41 | disposition home or self-care (01) ==
LOC: HO.LNP 10:40
PROVIDERS: Surgery; PCP Internal Medicine; Visit Provider Physician Assistant Surgical
DX: E66.9 Obesity, unspecified (principal); I10 Essential (primary) hypertension; J45.909 Unspecified asthma, uncomplicated; K21.9 Gastro-esophageal reflux disease without esophagitis; E78.5 Hyperlipidemia, unspecified; Z68.38 Body mass index [BMI] 38.0-38.9, adult
CPT/HCPCS: 83013; 99211

== ENCOUNTER 2023-03-03 10:11 | Observation (INO) | payer OTHER, SELFPAY ==
[2023-03-03] VITALS (9 sets, daily range): BP systolic 110–147; BP diastolic 70–93; PULSE 68–82; RESP 17–18; TEMP 36.2–37; O2SAT 96–99; BMI 38.4
--- NOTE | ~2023-03-03 | MR_ITS ---
EXAMINATION: MR BRAIN WITHOUT CONTRAST CLINICAL INFORMATION: Stroke. Left-sided paresthesia. COMPARISON: CTA head and neck from 03/03/2023. TECHNIQUE: MRI of the brain was obtained using routine sequences without contrast. FINDINGS: No focal restricted diffusion is demonstrated to suggest acute or subacute cerebral ischemia. No evidence of acute or chronic hemorrhagic products on heme-sensitive imaging. Chronic lacunar infarcts of the bilateral cerebellar hemispheres and right caudate nucleus. Scattered periventricular and deep white matter T2 FLAIR hyperintensities consistent with mild underlying microangiopathy. The ventricles are normal in morphology and size. No abnormal mass effect. No midline shift. Normal appearance of the pituitary gland. Normal positioning of the cerebellar tonsils. Normal arterial and venous vascular flow voids are present. Normal, homogeneous marrow signal. Mild mucosal thickening of the paranasal sinuses. No signal abnormalities within the mastoids. MR/MR head/brain wo con IMPRESSION: 1. No acute intracranial abnormalities. 2. Mild underlying microangiopathy. Chronic lacunar infarcts of the cerebellum and right caudate nucleus.
--- NOTE | ~2023-03-03 | CT_ITS ---
EXAMINATION: CT ANGIOGRAM HEAD CT ANGIOGRAM NECK CLINICAL INFORMATION: Reason for Exam left sided paresthesias COMPARISON: None. TECHNIQUE: Initial noncontrast commercial lines assistant imaging of the head and neck was performed. Noncontrast head CT was also performed. Test bolus sequences followed by intravenous administration 70 mL of Omnipaque 350. Helical imaging was performed in the axial plane from the aortic arch to the skull vertex. Delayed postcontrast imaging of the head was also performed. The data was processed at the electromechanical technologist's workstation for generation of MIP sequences. Angled MIPs and volume rendered reformatted images were also generated at an offline 3D workstation. Stenoses are assessed in accordance with NASCET criteria unless otherwise indicated. DLP: 2150.1 mGy-cm This CT examination was performed using dose optimization techniques as appropriate, variously including the following: *Automated exposure control. *Adjustment of mA and/or kV according to patient size (this includes techniques or standardized protocols for targeted exams where dose is matched to indication/reason for exam; i.e. extremities or head). *Use of iterative reconstruction technique. FINDINGS: CT Head: There is no evidence of acute intracranial hemorrhage or edematous territorial infarction. Age-indeterminate lacunar infarct involving the right caudate nucleus. Chronic small bilateral cerebellar infarcts. Wallace-white matter differentiation is preserved. The ventricles are normal in size and configuration. No evidence for obstructive hydrocephalus. No abnormal mass effect or midline shift. No extra-axial fluid collections. No pathologic intra-axial enhancement or regional oligemia. No acute soft tissue or osseous abnormalities. Ethmoid and right frontal sinus mucosal thickening. CT Neck: The thyroid gland and remaining cervical soft tissues are within normal limits. Multilevel cervical spondylosis. CT Upper Chest: The visualized lung apices and upper mediastinum are within normal limits. Neck CTA: Aortic Arch: Normal contour and caliber. Two vessel branching pattern of the arch with left common carotid artery arising from the brachiocephalic trunk. Great Vessel Origins: No significant stenosis of the branch origins. Right Common Carotid Artery: No focal stenosis or occlusion. Cervical Right Internal Carotid Artery: Normal opacification without focal stenosis or occlusion. Left Common Carotid Artery: No focal stenosis or occlusion. Cervical Left Internal Carotid Artery: Normal opacification without focal stenosis or occlusion. Cervical Right Vertebral Artery: No focal stenosis or occlusion. Portions of the V1 segment are not well assessed due to streak artifact from venous reflux of injected intravenous contrast. Cervical Left Vertebral Artery: No focal stenosis or occlusion. Brain CTA: Intracranial Internal Carotid Arteries: No focal stenosis or occlusion. Right Anterior Cerebral Artery: Normal A1 segment. Normal opacification of the distal MYRIAM segments. Left Anterior Cerebral Artery: Normal A1 segment. Normal opacification of the distal MYRIAM segments. Anterior Communicating Artery: Duplicated Right Middle Cerebral Artery: Normal M1 segment of the MCA without focal stenosis or occlusion. Normal arborization of the distal segments. Left Middle Cerebral Artery: Normal M1 segment of the MCA without focal stenosis or occlusion. Normal arborization of the distal segments. Right Vertebral Artery: Normal V4 segment. Left Vertebral Artery: Normal V4 segment. Basilar Artery: Normal without focal stenosis or occlusion. Normal appearance of the proximal superior cerebellar arteries. Right Posterior Cerebral Artery: Normal P1 segment. Normal opacification of the distal CLAIM SPECIALIST segments. Left Posterior Cerebral Artery: Normal P1 segment. Normal opacification of the distal CLAIM SPECIALIST segments. Normal opacification of the superior sagittal, straight, transverse, and sigmoid sinuses. CT/CT angio head neck IMPRESSION: 1. No acute intracranial hemorrhage, mass effect, hydrocephalus, or acute territorial edematous infarction. 2. Age-indeterminate but favored chronic lacunar infarct involving the right caudate nucleus. There are also chronic small bilateral cerebellar infarcts. 3. No arterial high grade stenosis or large vessel occlusion in the head or neck.
--- NOTE | 2023-03-03 10:25 | ED_ITS ---
HPI - General Adult General Chief complaint: Neuro Symptoms/Deficit Stated complaint: LT FACIAL TINGLING Time Seen by Provider: 03/03/23 10:24 Source: patient and EMS Mode of arrival: EMS Limitations: no limitations History of Present Illness HPI narrative: Patient is a 53 year old assigned female at with a history of asthma, anxiety, and HTN presenting to the emergency department today with concerns of intermittent left sided facial drooping. Patient states that 2 days ago, she ate an almond and had an allergic reaction causing hives and swelling. Patient states that she took benadryl and the symptoms resolved. Patient states that yesterday morning she woke up and the left part of her lower lip was swollen and drooping . Patient states that the symptoms got better when she got up and around however, patient states that it happened again later that afternoon. Patient denies any episodes today. Patient denies any dizziness, lightheadedness, abdominal pain, nausea, vomiting, fever, chills, blurry vision, double vision, loss of vision, chest pain, difficulty breathing, shortness of breath, back pain, night sweats, pain with urination, increased urinary frequency, increased urinary urgency, blood in her urine or stool, syncope or a near syncopal episode, recent trauma or falls, bowel incontinence, bladder incontinence, bowel retention, bladder retention, or any other complaints at this time. Severity: mild Relieving factors: none Exacerbating factors: none Associated symptoms: denies other symptoms Related Data Home Medications Medication Instructions Recorded Confirmed albuterol sulfate 90 mcg/actuation inhalation 12/22/22 01/15/23 aerosol inhaler (Ventolin HFA) atorvastatin 20 mg tablet 20 mg PO DAILY 12/22/22 01/15/23 duloxetine 30 mg capsule,delayed 30 mg PO BID 12/22/22 01/15/23 release fluticasone propionate 110 2 puff inhalation BID 12/22/22 01/15/23 mcg/actuation HFA aerosol inhaler (Flovent HFA) hydroxyzine HCl 25 mg tablet 25 mg PO TID 12/22/22 01/15/23 ibuprofen 800 mg tablet 800 mg PO TID 12/22/22 01/15/23 lisinopril 20 1 tab PO DAILY 12/22/22 01/15/23 mg-hydrochlorothiazide 25 mg tablet loratadine 10 mg tablet 10 mg PO DAILY 12/22/22 01/15/23 melatonin 5 mg tablet mg PO 12/22/22 01/15/23 omeprazole 20 mg capsule,delayed 20 mg PO DAILY 12/22/22 01/15/23 release Previous Rx's Medication Instructions Recorded cholecalciferol (vitamin D3) 125 125 mcg PO DAILY #30 caps 02/11/23 mcg (5,000 unit) capsule thiamine HCl (vitamin B1) 100 mg 100 mg PO DAILY #30 tabs 02/18/23 tablet vitamin A palmitate 3,000 mcg 10,000 unit PO DAILY #30 caps 02/18/23 (10,000 unit) capsule amoxicillin 500 mg capsule 1,000 mg (2 x 500 mg) PO Q12H #28 02/22/23 caps clarithromycin 500 mg tablet 500 mg PO Q12H #28 tabs 02/22/23 omeprazole 40 mg capsule,delayed 40 mg PO DAILY #14 caps 02/22/23 release Allergies Allergy/AdvReac Type Severity Reaction Status Date / Time almond Allergy Shortness Verified 03/03/23 10:29 of Breath latex Allergy Unknown Verified 01/15/23 10:37 Review of Systems 2 Constitutional: Constitutional: Reports no additional constitutional complaints, Denies chills, Denies fever(s) and Denies night sweats Eyes: Eyes: Reports no additional eye complaints, Denies blurry vision, Denies change in vision, Denies diplopia, Denies eye discharge, Denies loss of vision and Denies eye pain ENT: Denies dizziness Cardiovascular: Cardiovascular: Reports no additional cardiovascular complaints, Denies chest pain, Denies lightheadedness, Denies Loss of Consciousness and Denies dyspnea Respiratory: Respiratory: Reports no additional respiratory complaints and Denies dyspnea Gastrointestinal: Gastrointestinal: Reports no additional gastrointestinal complaints, Denies abdominal pain, Denies melena, Denies hematochezia, Denies change in bowel habits and Denies change in stool character Genitourinary: Genitourinary: Denies hematuria, Denies urinary frequency, Denies dysuria, Denies urinary incontinence, Denies urinary hesitancy and Denies urinary urgency Musculoskeletal: Musculoskeletal: Reports no additional musculoskeletal complaints, Denies numbness and Denies tingling Neurologic: Reports Abnormal speech present, Denies dizziness, Denies loss of vision, Denies numbness and Denies tingling Psychiatric: Psychiatric: Reports no additional psychiatric complaints Endocrine: Endocrine: Reports no additional endocrine complaints Hematologic/Lymphatic: Hematologic/Lymphatic: Reports no additional hematologic/lymphatic complaints Allergic/Immunologic: Allergic/Immunologic: Reports no additional allergic/immunologic complaints [facility] Past Medical History Attestation statement: The following information was validated with the patient. Source: old records reviewed and nursing notes reviewed Medical History BMI 38.0-38.9,adult Obesity Insomnia Hyperlipidemia GERD (gastroesophageal reflux disease) Fibromyalgia Anxiety Depression Asthma Hypertension Family History Family History Mother No problems noted. Father Cancer Son No problems noted. Daughter No problems noted. Son No problems noted. Daughter No problems noted. Daughter No problems noted. Social History Social History Household Members: Children Housing: House Alcohol intake: current Alcohol intake frequency: holidays/special occasions only Patient Tobacco Use Status: Current everyday Tobacco user Smoked in Last 30 Days: Yes Use of substances other than those prescribed or required for medical reasons: No Substance Use Type: Marijuana Advance Directives: No Current occupational status: unemployed Physical Exam ED Vital Signs: Vital Signs - 24 hr 03/03/23 10:29 03/03/23 12:00 03/03/23 14:00 Temperature 98 F 98 F Pulse Rate 81 75 68 Respiratory Rate 18 18 18 Blood Pressure 128/93 H 110/70 127/75 Pulse Oximetry 98 98 99 Oxygen Delivery Method Room Air Room Air Room Air BMI result Body Mass Index 38.4 Const General: cooperative, no acute distress, alert and awake Nutritional Appearance: well nourished Orientation/consciousness: patient oriented x3 Limitations: no limitations [facility] Head: Yes normal to inspection and Yes atraumatic Ears: hearing grossly normal bilaterally and external ears normal General nose exam: Normal external nose present, no nasal discharge noted and no epistaxis Face and sinus: Yes normal facial exam, No abrasion and No laceration Mouth: Normal oral and palatal mucosa present, no drooling and no muffled voice Eyes General: appearance normal, both eyes and all related structures Periorbital: periorbital findings normal Eyelids: Yes eyelids normal Conjunctivae: conjunctivae normal Pupils: Equal, round and reactive pupils present EOM: EOMs intact bilaterally Neck Neck: Yes normal visual inspection, Yes full ROM and Yes no lymphadenopathy Chest Chest palpation & inspection: normal inspection of the chest Resp Effort & Inspection: normal respiratory effort and able to speak in complete sentences Auscultation: clear to auscultation bilaterally Cardio Rate: regular rate Rhythm: regular rhythm GI Inspection: Yes normal to inspection Neuro General: patient oriented x3 and moves all extremities Cranial nerves: Yes Equal, round and reactive pupils present Cognition (Neuro): normal cognition Speech: Abnormal speech present slurred (minimally) Motor exam (neuro): 5/5 motor strength present throughout Sensory Exam: Normal double simultaneous stimulation for sensation Coordination: [id number] test normal Extrem General: Yes normal to inspection, Yes full ROM and Yes capillary refill normal Psych Appearance: grossly normal Mental Status: mental status grossly normal Affect: normal affect Attitude: cooperative Thought process: Normal thought process present Thought content: Normal thought content present Insight: Good insight present (Psych) Medications Administered Discontinued Medications Generic Name Dose Route Start Last Admin Trade Name Freq PRN Reason Stop Dose Admin Iohexol 70 ml 03/03/23 13:27 03/03/23 13:27 Iohexol 350 Mg/Ml 100 Ml Infus..Btl IV 03/03/23 13:28 70 ml ONCE ONE Administration Ondansetron HCl 4 mg 03/03/23 12:04 03/03/23 12:45 Ondansetron Hcl 4 Mg/2 Ml Vial IVPUSH 03/03/23 12:05 4 mg ONCE ONE Administration Medical Decision Making Medical Decision Making [facility] Narrative: Patient is a 53 year old assigned female at with a history of HTN presenting to the emergency department today with left sided facial numbness and intermittent left sided facial droop. Patient's physical exam initially showed very slight slurring of the speech. Patient's numbness and slurring resolved within moments of being in the department. No facial droop appreciated. Patient's blood work was unremarkable. Patient's urine showed no acute process. Patient's EKG was unremarkable. Patient's CTA of the head and neck showed a chronic lacunar infarct involving the right caudate nucleus and multiple small cerebellar infarcts bilaterally. I spoke to the hospitalist who agreed to admission. I explained my physical exam findings as well as all test results to the patient. I answered all questions asked by the patient. Patient verbalized agreement and understanding with this treatment plan and admission. Differential Diagnosis Differential Diagnoses: The differential diagnosis associated with the presentation includes TIA Stroke Paresthesias Hypertension Electrolyte abnormalities Admission/Observation Consideration of admission/observation: Escalation of care including admission/observation considered Patient admitted. Consult Healthcare Provider Management of the patient was discussed with: Hospitalist (spoke to the hospitalist as noted in the MDM Rationale portion of this note.) Lab Data [facility] Lab Attestation statement: I reviewed the patient's lab results. My interpretation of these studies and their corresponding values is that they are grossly normal. 03/03/23 12:02 03/03/23 12:02 Labs: Lab Results 03/03/23 03/03/23 03/03/23 Range/Units 10:45 12:02 12:03 WBC 6.2 (4.8-10.8) X10*3/uL RBC 4.71 (4.20-5.50) X10*6/uL Hgb 14.2 (12.0-16.0) g/dl Hct 43.0 (37.0-47.0) % MCV 91.3 (80.0-98.0) fL MCH 30.1 (27.0-33.0) pg MCHC 33.0 (31.0-35.0) g/dl RDW 13.3 (11.0-16.0) % Plt Count 315 (160-400) X10*3/uL MPV 9.6 (9.4-12.3) fL Immature Gran % (Auto) 0.3 (0.0-0.4) % Neut % (Auto) 60.1 (45-73) % Lymph % (Auto) 30.6 (20-40) % [place] % (Auto) 7.5 (2-11) % Eos % (Auto) 1.0 (0-4) % Baso % (Auto) 0.5 (0-2) % Lymph # (Auto) 1.9 (1.2-4.9) X10*3/uL [place] # (Auto) 0.5 (0.1-1.2) X10*3/uL Eos # (Auto) 0.1 (0.0-0.4) X10*3/uL Baso # (Auto) 0.0 (0.0-0.2) X10*3/uL Abs Immat Gran (auto) 0.02 (0.00-0.03) X10*3/uL Absolute Neuts (auto) 3.8 (2.0-8.3) x10*3/uL Absolute Nucleated RBC 0.000 (0.0-0.012) X10*3/uL Nucleated RBC % (auto) 0.0 (0.0-0.2) /100WBC PT 12.1 (11.1-13.3) SEC INR 1.0 (0.9-1.1) APTT 30.6 (26.0-36.4) SEC Sodium 139 (135-145) mmol/L Potassium 4.0 (3.3-5.1) mmol/L Chloride 104 (96-108) mmol/L Carbon Dioxide 30 H (22-29) mmol/L Anion Gap 9 L (12-20) BUN 14 (9-16) mg/dL Creatinine 0.87 (0.5-1.4) mg/dL Estim Creat Clear Calc 85.4 Estimated GFR > 60 Random Glucose 92 (60-115) mg/dL Calcium 9.8 D (8.4-10.2) mg/dL Magnesium 2.2 (1.6-2.6) mg/dL Total Bilirubin 0.4 (0.0-1.0) mg/dL AST 20 (5-31) U/L ALT 22 (0-31) U/L Alkaline Phosphatase 91 (39-117) U/L Troponin I High Sens < 2.7 (<3.5-17.0) ng/L Total Protein 7.8 (6.5-8.0) g/dL Albumin 4.1 (3.5-5.0) g/dL Urine Color Urine Appearance Urine pH (5.0-9.0) Ur Specific [place] (1.005-1.025) Urine Protein (Neg-Trace) mg/dL Urine Glucose (UA) (Negative) mg/dL Urine Ketones (Negative) mg/dL Urine Blood (Negative) Urine Nitrite (Negative) Ur Leukocyte Esterase (Negative) Influenza Type A (PCR) NEGATIVE (Negative) Influenza Type B (PCR) NEGATIVE (Negative) RSV RNA Qual (PCR) NEGATIVE (Negative) SARS-CoV-2 RNA (RT-PCR) NEGATIVE (Negative) 03/03/23 Range/Units 12:28 WBC (4.8-10.8) X10*3/uL RBC (4.20-5.50) X10*6/uL Hgb (12.0-16.0) g/dl Hct (37.0-47.0) % MCV (80.0-98.0) fL MCH (27.0-33.0) pg MCHC (31.0-35.0) g/dl RDW (11.0-16.0) % Plt Count (160-400) X10*3/uL MPV (9.4-12.3) fL Immature Gran % (Auto) (0.0-0.4) % Neut % (Auto) (45-73) % Lymph % (Auto) (20-40) % [place] % (Auto) (2-11) % Eos % (Auto) (0-4) % Baso % (Auto) (0-2) % Lymph # (Auto) (1.2-4.9) X10*3/uL [place] # (Auto) (0.1-1.2) X10*3/uL Eos # (Auto) (0.0-0.4) X10*3/uL Baso # (Auto) (0.0-0.2) X10*3/uL Abs Immat Gran (auto) (0.00-0.03) X10*3/uL Absolute Neuts (auto) (2.0-8.3) x10*3/uL Absolute Nucleated RBC (0.0-0.012) X10*3/uL Nucleated RBC % (auto) (0.0-0.2) /100WBC PT (11.1-13.3) SEC INR (0.9-1.1) APTT (26.0-36.4) SEC Sodium (135-145) mmol/L Potassium (3.3-5.1) mmol/L Chloride (96-108) mmol/L Carbon Dioxide (22-29) mmol/L Anion Gap (12-20) BUN (9-16) mg/dL Creatinine (0.5-1.4) mg/dL Estim Creat Clear Calc Estimated GFR Random Glucose (60-115) mg/dL Calcium (8.4-10.2) mg/dL Magnesium (1.6-2.6) mg/dL Total Bilirubin (0.0-1.0) mg/dL AST (5-31) U/L ALT (0-31) U/L Alkaline Phosphatase (39-117) U/L Troponin I High Sens (<3.5-17.0) ng/L Total Protein (6.5-8.0) g/dL Albumin (3.5-5.0) g/dL Urine Color Yellow Urine Appearance Clear Urine pH 5.5 (5.0-9.0) Ur Specific [place] 1.020 (1.005-1.025) Urine Protein Negative (Neg-Trace) mg/dL Urine Glucose (UA) Negative (Negative) mg/dL Urine Ketones Negative (Negative) mg/dL Urine Blood Negative (Negative) Urine Nitrite Negative (Negative) Ur Leukocyte Esterase Negative (Negative) Influenza Type A (PCR) (Negative) Influenza Type B (PCR) (Negative) RSV RNA Qual (PCR) (Negative) SARS-CoV-2 RNA (RT-PCR) (Negative) Independent Interpretation I performed an independent interpretation of an: EKG and CT Scan Interpretation: My interpretation is in agreement with the radiologist's impression of this imaging study. - EXAMINATION: CT ANGIOGRAM HEAD CT ANGIOGRAM NECK CLINICAL INFORMATION: Reason for Exam left sided paresthesias COMPARISON: None. TECHNIQUE: Initial noncontrast travel manager imaging of the head and neck was performed. Noncontrast head CT was also performed. Test bolus sequences followed by intravenous administration 70 mL of Omnipaque 350. Helical imaging was performed in the axial plane from the aortic arch to the skull vertex. Delayed postcontrast imaging of the head was also performed. The data was processed at the special procedure technologist's workstation for generation of MIP sequences. Angled MIPs and volume rendered reformatted images were also generated at an offline 3D workstation. Stenoses are assessed in accordance with NASCET criteria unless otherwise indicated. DLP: 2150.1 mGy-cm This CT examination was performed using dose optimization techniques as appropriate, variously including the following: *Automated exposure control. *Adjustment of mA and/or kV according to patient size (this includes techniques or standardized protocols for targeted exams where dose is matched to indication/reason for exam; i.e. extremities or head). *Use of iterative reconstruction technique. FINDINGS: CT Head: There is no evidence of acute intracranial hemorrhage or edematous territorial infarction. Age-indeterminate lacunar infarct involving the right caudate nucleus. Chronic small bilateral cerebellar infarcts. Wallace-white matter differentiation is preserved. The ventricles are normal in size and configuration. No evidence for obstructive hydrocephalus. No abnormal mass effect or midline shift. No extra-axial fluid collections. No pathologic intra-axial enhancement or regional oligemia. No acute soft tissue or osseous abnormalities. Ethmoid and right frontal sinus mucosal thickening. CT Neck: The thyroid gland and remaining cervical soft tissues are within normal limits. Multilevel cervical spondylosis. CT Upper Chest: The visualized lung apices and upper mediastinum are within normal limits. Neck CTA: Aortic Arch: Normal contour and caliber. Two vessel branching pattern of the arch with left common carotid artery arising from the brachiocephalic trunk. Great Vessel Origins: No significant stenosis of the branch origins. Right Common Carotid Artery: No focal stenosis or occlusion. Cervical Right Internal Carotid Artery: Normal opacification without focal stenosis or occlusion. Left Common Carotid Artery: No focal stenosis or occlusion. Cervical Left Internal Carotid Artery: Normal opacification without focal stenosis or occlusion. Cervical Right Vertebral Artery: No focal stenosis or occlusion. Portions of the V1 segment are not well assessed due to streak artifact from venous reflux of injected intravenous contrast. Cervical Left Vertebral Artery: No focal stenosis or occlusion. Brain CTA: Intracranial Internal Carotid Arteries: No focal stenosis or occlusion. Right Anterior Cerebral Artery: Normal A1 segment. Normal opacification of the distal MYRIAM segments. Left Anterior Cerebral Artery: Normal A1 segment. Normal opacification of the distal MYRIAM segments. Anterior Communicating Artery: Duplicated Right Middle Cerebral Artery: Normal M1 segment of the MCA without focal stenosis or occlusion. Normal arborization of the distal segments. Left Middle Cerebral Artery: Normal M1 segment of the MCA without focal stenosis or occlusion. Normal arborization of the distal segments. Right Vertebral Artery: Normal V4 segment. Left Vertebral Artery: Normal V4 segment. Basilar Artery: Normal without focal stenosis or occlusion. Normal appearance of the proximal superior cerebellar arteries. Right Posterior Cerebral Artery: Normal P1 segment. Normal opacification of the distal FLORAL ASSISTANT segments. Left Posterior Cerebral Artery: Normal P1 segment. Normal opacification of the distal FLORAL ASSISTANT segments. Normal opacification of the superior sagittal, straight, transverse, and sigmoid sinuses. CT/CT angio head neck IMPRESSION: 1. No acute intracranial hemorrhage, mass effect, hydrocephalus, or acute territorial edematous infarction. 2. Age-indeterminate but favored chronic lacunar infarct involving the right caudate nucleus. There are also chronic small bilateral cerebellar infarcts. 3. No arterial high grade stenosis or large vessel occlusion in the head or neck. Dictated By: Karlos Pyle Signed By: Electronically signed by Karlos Pyle 03/03/23 4483 Radiology Impression Discussion of test interpretation with radiology: I have reviewed the radiologist's reading. Independent Historian Clinical information obtained from an independent historian. History obtained from or confirmed by: EMS (EMS provided additional history and confirmed the history provided by the patient.) Chronic Conditions Patient?s care impacted by: Hypertension Critical Care Time Critical Care Time Critical Care Time: Yes Total Critical Care Time: 55 Attestation: I spent 55 minutes of Critical Care Time with this patient. This does not include time spent on separately reported billable procedures. Discharge Plan Discharge Clinical Impression: Paresthesia, Brain TIA Patient Disposition: Admitted As Inpatient Prescriptions: No Action cholecalciferol (vitamin D3) 125 mcg (5,000 unit) capsule 125 mcg PO DAILY Qty: 30 2RF vitamin A palmitate 3,000 mcg (10,000 unit) capsule 10,000 unit PO DAILY Qty: 30 1RF thiamine HCl (vitamin B1) 100 mg tablet 100 mg PO DAILY Qty: 30 2RF omeprazole 40 mg capsule,delayed release(DR/EC) 40 mg PO DAILY Qty: 14 0RF clarithromycin 500 mg tablet 500 mg PO Q12H Qty: 28 0RF amoxicillin 500 mg capsule 1,000 mg PO Q12H Qty: 28 0RF melatonin 5 mg tablet PO duloxetine 30 mg capsule,delayed release(DR/EC) 30 mg PO BID fluticasone propionate [Flovent HFA] 110 mcg/actuation HFA aerosol inhaler 2 puff inhalation BID hydroxyzine HCl 25 mg tablet 25 mg PO TID ibuprofen 800 mg tablet 800 mg PO TID albuterol sulfate [Ventolin HFA] 90 mcg/actuation HFA aerosol inhaler inhalation atorvastatin 20 mg tablet 20 mg PO DAILY loratadine 10 mg tablet 10 mg PO DAILY omeprazole 20 mg capsule,delayed release(DR/EC) 20 mg PO DAILY lisinopril-hydrochlorothiazide 20-25 mg tablet 1 tab PO DAILY
--- NOTE | 2023-03-03 10:26 | ECG_ITS ---
Test Reason : weakness Blood Pressure : / mmHG Vent. Rate : 073 BPM Atrial Rate : 073 BPM P-R Int : 144 ms QRS Dur : 090 ms QT Int : 378 ms P-R-T Axes : 014 -07 036 degrees QTc Int : 416 ms Sinus rhythm with Premature supraventricular complexes Minimal voltage criteria for LVH, may be normal variant ( R in aVL ) Borderline ECG When compared with ECG of 11-FEB-2023 10:51, Questionable change in QRS axis Referred By: Marguerite Matamoros Electronically Signed By:TERRA OVIEDO MD
[2023-03-03 11:42] LABS: Influenza A PCR NEGATIVE (Negative); Influenza B PCR NEGATIVE (Negative); Resp Syncy Virus RNA Qual PCR NEGATIVE (Negative); SARS COV2 PCR INHOUSE NEGATIVE (Negative)
[2023-03-03 12:20] LABS: MANUAL DIFF FLAG NO
[2023-03-03 12:22] LABS: Basophils Percent Auto 0.5 % (0-2); Eosinophils Absolute Auto 0.1 X10*3/uL (0.0-0.4); Hemoglobin 14.2 g/dl (12.0-16.0); Imm Gran Abs Auto 0.02 X10*3/uL (0.00-0.03); Imm Gran Pct Auto 0.3 % (0.0-0.4); Lymphocytes Absolute Auto 1.9 X10*3/uL (1.2-4.9); Lymphocytes Percent Auto 30.6 % (20-40); Mean Corpuscular Hemoglobin 30.1 pg (27.0-33.0); Mean Corpuscular Volume 91.3 fL (80.0-98.0); Mean Platelet Volume 9.6 fL (9.4-12.3); Monocytes Absolute Auto 0.5 X10*3/uL (0.1-1.2); Monocytes Percent Auto 7.5 % (2-11); Neutrophils Absolute Auto 3.8 x10*3/uL (2.0-8.3); Neutrophils Percent Auto 60.1 % (45-73); Platelet Count 315 X10*3/uL (160-400); Red Blood Count 4.71 X10*6/uL (4.20-5.50); Red Cell Distribution Width 13.3 % (11.0-16.0); White Blood Count 6.2 X10*3/uL (4.8-10.8)
[2023-03-03 12:33] LABS: Prothrombin Time 12.1 SEC (11.1-13.3)
[2023-03-03 12:35] LABS: Partial Thromboplastin Time 30.6 SEC (26.0-36.4)
[2023-03-03 12:39] LABS: Alanine Aminotransferase 22 U/L (0-31); Albumin Level 4.1 g/dL (3.5-5.0); Alkaline Phosphatase 91 U/L (39-117); Anion Gap 9 (12-20); Aspartate Amino Transferase 20 U/L (5-31); Bilirubin Total 0.4 mg/dL (0.0-1.0); Blood Urea Nitrogen 14 mg/dL (9-16); Calcium 9.8 mg/dL (8.4-10.2); Carbon Dioxide 30 mmol/L (22-29); Chloride 104 mmol/L (96-108); Creatinine Clr Calc Pharmacy 85.4; Estimated Glomerular Filt Rate > 60; Glucose Random 92 mg/dL (60-115); Magnesium 2.2 mg/dL (1.6-2.6); Sodium 139 mmol/L (135-145); Total Protein 7.8 g/dL (6.5-8.0)
[2023-03-03] MEDS: ondansetron HCL 4 MG/2 ML VIAL IVPUSH (12:45)
[2023-03-03 12:47] LABS: Appearance Urine Clear; Color Urine Yellow; Glucose Urine UA Negative (Negative); Leukocyte Esterase Urine Negative (Negative); Nitrite Urine Negative (Negative); PH 5.5 (5.0-9.0); Urine Blood Negative (Negative); Urine Ketones Negative (Negative); Urine Protein Negative (Neg-Trace)
[2023-03-03 12:54] LABS: Troponin-I High Sensitivity < 2.7 ng/L (<3.5-17.0)
[2023-03-03] MEDS: iohexoL 350 MG/ML 100 ML INFUS..BTL 70 ML IV (13:27)
--- NOTE | 2023-03-03 14:18 | PC.NURSE ---
denies numbness, no facial droop, no distress. breathing/talking well. vss. improved nausea s/p zofran
--- NOTE | 2023-03-03 15:38 | P.HPHOSP_ITS ---
History of Present Illness Date of Service: 03/03/23 Chief Complaint: numbness/tingling Ms Iqbal is a 53yo F with HTN, HLD, obesity undergoing bariatric evaluation, anxiety/depression, asthma, and Helicobacter pylori infection for which she is taking triple therapy with omeprazole, clarithromycin, and amoxicillin. Two nights ago, she had a sense of choking around midnight, then broke in in hives on her face. She took a Benadryl with complete resolution of the symptoms. She wondered if she had an allergy to some almonds she had eaten in the evening [though she's tolerated almonds without issues in the past] or to the antibiotics she had taken for H. pylori [though she's taken 6 days without a reaction and took another dose the next morning without issues]. Yesterday, she developed L-sided facial droop, tingling, and numbness at 9am. She went to urgent care and was instructed go to to the ED; however, she went home instead. Symptoms resolved at 12:20pm but recurred at 1pm. At that point, she went to sleep. She woke up at 4pm with resolution of the weakness, but with persistent tingling and numbness. She came to the ED today, and the ED PA noted some speech slurring that has since resolved. The numbness and tingling have also resolved. No visual disturbance, swallowing difficulty, arm weakness/numbness, or leg weakness/numbness. CTA of the head and neck showed a chronic R caudate lacunar infarct and multiple small cerebellar chronic infarcts. No high-grade carotid stenosis. On telemetry, she is in sinus rhythm. BP is 127/75. Review of Systems 2 Review of Systems: Yes all other systems are reviewed and are negative [facility] Medical History BMI 38.0-38.9,adult Obesity Insomnia Hyperlipidemia GERD (gastroesophageal reflux disease) Fibromyalgia Anxiety Depression Asthma Hypertension Family History Mother No problems noted. Father Cancer Son No problems noted. Daughter No problems noted. Son No problems noted. Daughter No problems noted. Daughter No problems noted. Social History Household Members: Children Housing: House Alcohol intake: current Alcohol intake frequency: holidays/special occasions only Patient Tobacco Use Status: Current everyday Tobacco user Smoked in Last 30 Days: Yes Use of substances other than those prescribed or required for medical reasons: No Substance Use Type: Marijuana Advance Directives: No Current occupational status: unemployed Meds Allergies Allergy/AdvReac Type Severity Reaction Status Date / Time almond Allergy Shortness Verified 03/03/23 10:29 of Breath latex Allergy Unknown Verified 01/15/23 10:37 Active Medications: Current Medications Acetaminophen (Acetaminophen 325 Mg Tablet) 650 mg PO Q6H PRN PRN Reason: Pain, Mild (Pain Scale 1-3) Diphenhydramine HCl (Diphenhydramine Hcl 25 Mg Capsule) 25 mg PO Q4H PRN PRN Reason: Itching Enoxaparin Sodium (Enoxaparin Sodium 40 Mg/0.4 Ml Syringe) 40 mg SUBCUT Q24H [place] Ondansetron HCl (Ondansetron Hcl 4 Mg/2 Ml Vial) 4 mg IVPUSH Q8H PRN PRN Reason: Nausea and Vomiting Sodium Chloride (0.9 % Sodium Chloride Flush 3 Ml Syringe) 3 ml IVFLUSH QSHIFT [place] Home Medications Medication Instructions Recorded Confirmed Last Taken Type atorvastatin 20 mg tablet 20 mg PO DAILY 12/22/22 01/15/23 Unknown History duloxetine 30 mg capsule,delayed 30 mg PO BID 12/22/22 01/15/23 Unknown History release fluticasone propionate 110 2 puff inhalation BID 12/22/22 01/15/23 Unknown History mcg/actuation HFA aerosol inhaler (Flovent HFA) hydroxyzine HCl 25 mg tablet 25 mg PO TID PRN Anxiety 12/22/22 01/15/23 Unknown History ibuprofen 800 mg tablet 800 mg PO TID PRN Pain 12/22/22 01/15/23 Unknown History lisinopril 20 1 tab PO DAILY 12/22/22 01/15/23 Unknown History mg-hydrochlorothiazide 25 mg tablet loratadine 10 mg tablet 10 mg PO DAILY 12/22/22 01/15/23 Unknown History melatonin 5 mg tablet 10 mg PO BEDTIME 12/22/22 01/15/23 Unknown History albuterol sulfate 90 mcg/actuation 2 puff inhalation Q4H PRN wheezing 03/03/23 Unknown History aerosol inhaler amoxicillin 500 mg capsule 500 mg PO Q12H 03/03/23 Unknown History fluticasone propionate 50 1 spray intranasal DAILY 03/03/23 Unknown History mcg/actuation nasal spray,suspension Physical Exam 2 Vital Signs and Narrative: Vital Signs: Last Vital Signs Temp 98 F 03/03/23 14:00 Pulse 68 03/03/23 14:00 Resp 18 03/03/23 14:00 BP 127/75 03/03/23 14:00 Pulse Ox 99 03/03/23 14:00 O2 Del Method Room Air 03/03/23 14:00 BMI result Body Mass Index 38.4 Gen: in no acute distress HEENT: sclera anicteric, moist mucus membranes Neck: supple Lungs: clear to auscultation bilaterally Heart: regular rate and rhythm, no murmurs Abd: soft, non-tender, non-distended, obese Ext: no edema Skin: warm/well-perfused Neuro: alert and oriented x3, normal visual us, extraocular movements intact, no facial droop, no pronator drift, normal strength in all 4 extremities Psych: appropriate affect Results Labs 03/03/23 12:02 03/03/23 12:02 Labs: Laboratory Results - last 24 hr 03/03/23 03/03/23 03/03/23 10:45 12:02 12:28 MCV 91.3 MCH 30.1 MCHC 33.0 RDW 13.3 Plt Count 315 MPV 9.6 Immature Gran % (Auto) 0.3 Neut % (Auto) 60.1 Lymph % (Auto) 30.6 [place] % (Auto) 7.5 Eos % (Auto) 1.0 Baso % (Auto) 0.5 Lymph # (Auto) 1.9 [place] # (Auto) 0.5 Eos # (Auto) 0.1 Baso # (Auto) 0.0 Abs Immat Gran (auto) 0.02 Absolute Neuts (auto) 3.8 Absolute Nucleated RBC 0.000 Nucleated RBC % (auto) 0.0 PT 12.1 INR 1.0 APTT 30.6 Anion Gap 9 L Estim Creat Clear Calc 85.4 Estimated GFR > 60 Random Glucose 92 Calcium 9.8 D Magnesium 2.2 Total Bilirubin 0.4 AST 20 ALT 22 Alkaline Phosphatase 91 Total Protein 7.8 Albumin 4.1 Urine Color Yellow Urine Appearance Clear Urine pH 5.5 Ur Specific [place] 1.020 Urine Protein Negative Urine Glucose (UA) Negative Urine Ketones Negative Urine Blood Negative Urine Nitrite Negative Ur Leukocyte Esterase Negative Influenza Type A (PCR) NEGATIVE Influenza Type B (PCR) NEGATIVE RSV RNA Qual (PCR) NEGATIVE SARS-CoV-2 RNA (RT-PCR) NEGATIVE Imaging Radiologist's Impressions: Impressions Head/Neck CTA 03/03/23 13:28 IMPRESSION: 1. No acute intracranial hemorrhage, mass effect, hydrocephalus, or acute territorial edematous infarction. 2. Age-indeterminate but favored chronic lacunar infarct involving the right caudate nucleus. There are also chronic small bilateral cerebellar infarcts. 3. No arterial high grade stenosis or large vessel occlusion in the head or neck. Assessment and Plan (1) Brain TIA: Status: Acute Plan 53yo F with risk factors of obesity, HTN, and HLD presenting with 2 episodes of facial weakness and paresthesias/numbness that have resolved, possible slurred speech as well, found to have evidence of chronic lacunar and cerebellar infarcts. 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
--- NOTE | 2023-03-03 16:33 | MHC.SLORD ---
Speech Language Pathology Order Status: PROFESSIONAL SKATER received consult order. Per MD order is for language and can wait until tomorrow 03/04. PROFESSIONAL SKATER to visit patient tomorrow 03/04 to evaluate language.
--- NOTE | 2023-03-03 16:35 | PHA.MEDREC ---
Pharmacy Consult ? Medication Reconciliation Pharmacy has completed the medication reconciliation. SPOKE TO PATIENT AND SHE WAS ABLE TO CONFIRM MEDICATIONS SHE TAKES AT HOME WHEN WE REVIEWED THE LIST PROVIDED BY HER MD (KURTIS ROBISON PRINTED 03/03) AND ALSO CLAIM HISTORY.
[2023-03-03] MEDS: Aspirin 81 MG TAB.CHEW PO (17:36)
[2023-03-03] MEDS: 0.9 % Sodium Chloride Flush 3 ML SYRINGE IVFLUSH (17:37)
[2023-03-03] MEDS: Acetaminophen 325 MG TABLET 650 MG PO (18:24)
[2023-03-03] MEDS: Enoxaparin Sodium 40 MG/0.4 ML SYRINGE SUBCUT (18:25)
[2023-03-03 20:09] LABS: Amphetamine Screen Urine Not Detected (Not Detect); Barbiturates, Urine Not Detected (Not Detect); Benzodiazepines Screen Urine Not Detected (Not Detect); Cannabinoid Screen Urine POSITIVE (Not Detect); Cocaine Screen Urine Not Detected (Not Detect); Fentanyl, urine Not Detected (Not Detect); Opiate Screen Urine Not Detected (Not Detect); Phencyclidine Screen Urine Not Detected (Not Detect)
--- NOTE | 2023-03-03 20:30 | PC.NURSE ---
ok to take telemetry off for MRI per Dr. Cronin.
[2023-03-03] MEDS: Atorvastatin Calcium 80 MG TABLET PO (20:34)
[2023-03-03] MEDS: Amoxicillin 500 MG CAPSULE PO (22:53)
[2023-03-03] MEDS: diphenhydrAMINE HCL 25 MG CAPSULE PO (22:57)
--- NOTE | 2023-03-04 | ECG_ITS ---
Test Reason : cp Blood Pressure : / mmHG Vent. Rate : 080 BPM Atrial Rate : 080 BPM P-R Int : 134 ms QRS Dur : 086 ms QT Int : 376 ms P-R-T Axes : 057 066 034 degrees QTc Int : 433 ms Sinus rhythm with Premature supraventricular complexes Otherwise normal ECG When compared with ECG of 03-MAR-2023 11:06, Questionable change in QRS axis Referred By: Ashley Monique Electronically Signed By:LEIDY CAO MD
[2023-03-04] MEDS: 0.9 % Sodium Chloride Flush 3 ML SYRINGE IVFLUSH ×3 (00:04→16:06)
[2023-03-04 04:00] VITALS: BP 123/70; PULSE 78; RESP 16; TEMP 35.8; O2SAT 96
--- NOTE | 2023-03-04 07:00 | CA_ITS ---
Transthoracic Echocardiogram Patient (Last, First, Middle): Catia Iqbal, Gender: Female Date of : 1970 Age: 53 Procedure Date: 03/04/2023 Procedure Type: Transthoracic Echocardiogram Location: [facility] [place] Height: 160.02 cm Weight: 97.98 kg BSA: 2.00 m2 Heart Rate: 80 bpm BP: 127 / 75 mmHg Construction Project Engineer: SB Referring MD: Ashley Monique MD Level Glass Vial Filler: Maximino Prajapati MD Symptoms: stroke. include bubble study Study Quality: Adequate ECG Rhythm: Sinus Conclusions: - Essentially normal study with no clear evidence of PFO by saline contrast Findings Left Ventricle Normal left ventricular size, thickness, and systolic function. The visually estimated ejection fraction is between 60-65%. Diastolic function is normal for age. Right Ventricle Normal right ventricular cavity size and systolic function. Atria The left atrium is likely dilated. There is no evidence of interatrial shunt by agitated saline. The right atrium was not well visualized. Aortic Valve Normal aortic valve structure and function. There is no aortic valve stenosis. There is no aortic valve regurgitation. Mitral Valve Normal mitral valve structure and function. There is no mitral valve regurgitation. There is no mitral valve stenosis. Pulmonic Valve The pulmonic valve is likely normal. Tricuspid Valve Likely normal tricuspid valve structure and function. Tricuspid regurgitation envelope is inadequate for calculation of right ventricular systolic pressure. Normal right atrial pressure. Great Vessels The pulmonary artery was not well visualized. There is no dilatation of the ascending aorta measuring 3.10 cm. Venous The inferior vena cava is normal in size and collapses greater than 50% with inspiration. Pericardium/Pleural There is no evidence of pericardial effusion. Prior Study Comparison No prior study available for comparison. Measurements 2D Linear Measurements IVSd: 0.86 0.6-0.9/0.6-1.0 cm LVIDd: 5.16 3.9-5.3/4.2-5.9 cm LVIDd Index: 2.58 2.4-3.2/2.2-3.1 cm/m2 LVIDs: 3.16 2.0-3.6 cm LVPWd: 0.94 0.7-1.1 cm LA Diam: 4.00 2.7-3.8/3.0-4.0 cm LAIDs Index: 2.00 1.5-2.3 cm/m2 LV Mass: 208.66 67-162/88-224 g LV Mass Index: 104.33 43-95/49-115 g/m2 LVOT Diam: 2.20 3.0+(-)1.3 cm Mitral Valve MV Pk E: 0.60 MV PK A: 0.45 MV Decel Time: 285.00 E/A: 1.30 E'Lateral: 9.03 E'Medial: 5.77 E/E' Med: 10.40 E/E' Lat: 6.60 PHT: 84.00 MVA PHT: 2.62 Decel Ward: 2.10 Aortic Valve AoV Pk Power: 1.29 AoV Pk Grad: 7.00 LUDWIN: 3.45 LVOT LVOT Pk Power: 1.12 LVOT Mn Power: 0.80 LVOT VTI: 0.18 LVOT Pk Grad: 5.00 LVOT Mn Grad: 3.00 LVOT Diam: 2.20 LVOT Area: 3.80 Diastolic Function MV Pk E: 0.60 MV Pk A: 0.45 E/A: 1.30 E'Medial: 5.77 E/E' Med: 10.40 E' Laterial: 9.03 E/E' Lat: 6.60 Right Ventricle TVS' Power: 11.20 Tricuspid Valve RA Press: 3.00 Great Vessels Aorta Sinus of Valsalva: 2.80 2.0-3.5 cm Ao Asc: 3.10 2.1-3.4 cm Ao Arch: 2.80 Pulmonary Veins Pulm Vein S/D 1.40 Pulmonary Valve PV Pk Power: 0.93 Peak PV Grad: 3.00 Updated in Other Vendor System with Status of Final Maximino Prajapati MD electronically signed on 03/04/2023 4:30:58 PM with status of Final
[2023-03-04 07:13] VITALS: BP 129/62; PULSE 95; RESP 20; TEMP 36.1; O2SAT 93
[2023-03-04] MEDS: Amoxicillin 500 MG CAPSULE PO (07:43)
[2023-03-04] MEDS: Omeprazole 40 MG CAPSULE.DR PO (07:43)
[2023-03-04] MEDS: Thiamine HCL 100 MG TABLET PO (07:45)
[2023-03-04] MEDS: Cholecalciferol (Vitamin D3) 25 MCG TABLET 125 MCG PO (07:45)
[2023-03-04] MEDS: Loratadine 10 MG TABLET PO (07:45)
[2023-03-04] MEDS: Aspirin 81 MG TAB.CHEW PO (07:45)
[2023-03-04] MEDS: Fluticasone Propionate 100 MCG BLST.W.DEV 2 PUFF INHALE (08:01)
[2023-03-04 08:03] VITALS: PULSE 73; RESP 16; O2SAT 99
[2023-03-04] MEDS: hydroCHLOROthiazide 25 MG TABLET PO (08:44)
[2023-03-04] MEDS: lisinopriL 20 MG TABLET PO (08:44)
--- NOTE | 2023-03-04 09:28 | MHC.CM.PN ---
AISHA 03/04. Pt lives at home with her daughter, is independent/self-care, uses a cane occasionally. Returning home is the goal. Pts daughter will transport her home. HCP completed with pt and now on file. PT and OT have each evaluated pt and no therapy is indicated at this time. PCP: Dr. Holden Blevins
[2023-03-04 10:57] LABS: Troponin-I High Sensitivity < 2.7 ng/L (<3.5-17.0)
--- NOTE | 2023-03-04 11:06 | P.DS_ITS ---
DS: Providers Provider Date of Service: 03/04/23 Date of admission: 03/03/23 15:16 Date of discharge: 03/04/23 Primary care physician: Holden Blevins MD Consults: 03/03/23 15:11 Consult to Neurology Routine Consulting Provider: [facility] Reason for consultation: TIA DS: Diagnosis Discharge Diagnosis (1) Chronic cerebrovascular accident (CVA): Status: Acute (2) Migraine with aura: Status: Acute DS: Summary Hospital Course Hospital Course: from my admission H+P, 03/03/23: Ms Iqbal is a 53yo F with HTN, HLD, obesity undergoing bariatric evaluation, anxiety/depression, asthma, and Helicobacter pylori infection for which she is taking triple therapy with omeprazole, clarithromycin, and amoxicillin. Two nights ago, she had a sense of choking around midnight, then broke in in hives on her face. She took a Benadryl with complete resolution of the symptoms. She wondered if she had an allergy to some almonds she had eaten in the evening [though she's tolerated almonds without issues in the past] or to the antibiotics she had taken for H. pylori [though she's taken 6 days without a reaction and took another dose the next morning without issues]. Yesterday, she developed L-sided facial droop, tingling, and numbness at 9am. She went to urgent care and was instructed go to to the ED; however, she went home instead. Symptoms resolved at 12:20pm but recurred at 1pm. At that point, she went to sleep. She woke up at 4pm with resolution of the weakness, but with persistent tingling and numbness. She came to the ED today, and the ED PA noted some speech slurring that has since resolved. The numbness and tingling have also resolved. No visual disturbance, swallowing difficulty, arm weakness/numbness, or leg weakness/numbness. CTA of the head and neck showed a chronic R caudate lacunar infarct and multiple small cerebellar chronic infarcts. No high-grade carotid stenosis. On telemetry, she is in sinus rhythm. BP is 127/75. She was admitted to the telemetry unit. No further facial droop, language difficulty, or numbness. No arrhythmias. Echocardiography showed essentially normal study with no clear evidence of PFO by saline contrast. MRI showed mild underlying microangiopathy and chronic lacunar infarcts of the cerebellum and right caudate nucleus. She was seen by [facility], PT, OT, and Neurology. Ultimately her symptoms were attributed to migraine with aura. She was discharged on intensified statin [to start after completing clarithromycin] and aspirin for prevention of strokes. She was also prescribed sumatriptan for abortive treatment of migraines. Propranolol or topiramate could be considered in the future should the migraines be more frequent. She can follow up with her PCP in 1-2 weeks and Neurology in 1 month. Time Attestation Discharge coordination time: Greater than 30 minutes Quality: Safe Use of Opioids Does Pt have an Active Cancer Diagnosis on the Problem List?: No Quality: Stroke Does the patient have a stroke diagnosis?: No Physical Exam Vital Signs: Vital Signs: Last Vital Signs Temp 96.9 F 03/04/23 07:13 Pulse 73 03/04/23 08:03 Resp 16 03/04/23 08:03 BP 129/62 03/04/23 07:13 Pulse Ox 93 03/04/23 07:13 O2 Del Method Room Air 03/04/23 07:13 BMI result Body Mass Index 38.4 Gen: in no acute distress HEENT: sclera anicteric, moist mucus membranes Neck: supple Lungs: clear to auscultation bilaterally Heart: regular rate and rhythm, no murmurs Abd: soft, non-tender, non-distended Ext: no edema Skin: warm/well-perfused Neuro: alert and oriented x3, no facial droop, normal speech, no pronator drift, normal strength in all 4 extremities, normal FTN/KALI Psych: appropriate affect DS: Data Data Completed and Pending Completed studies during hospitalization [Text1]: Laboratory Results WBC 6.2 X10*3/uL (4.8-10.8) 03/03/23 12:02 RBC 4.71 X10*6/uL (4.20-5.50) 03/03/23 12:02 Hgb 14.2 g/dl (12.0-16.0) 03/03/23 12:02 Hct 43.0 % (37.0-47.0) 03/03/23 12:02 MCV 91.3 fL (80.0-98.0) 03/03/23 12:02 MCH 30.1 pg (27.0-33.0) 03/03/23 12:02 MCHC 33.0 g/dl (31.0-35.0) 03/03/23 12:02 RDW 13.3 % (11.0-16.0) 03/03/23 12:02 Plt Count 315 X10*3/uL (160-400) 03/03/23 12:02 MPV 9.6 fL (9.4-12.3) 03/03/23 12:02 Immature Gran % (Auto) 0.3 % (0.0-0.4) 03/03/23 12:02 Neut % (Auto) 60.1 % (45-73) 03/03/23 12:02 Lymph % (Auto) 30.6 % (20-40) 03/03/23 12:02 Gaston % (Auto) 7.5 % (2-11) 03/03/23 12:02 Eos % (Auto) 1.0 % (0-4) 03/03/23 12:02 Baso % (Auto) 0.5 % (0-2) 03/03/23 12:02 Lymph # (Auto) 1.9 X10*3/uL (1.2-4.9) 03/03/23 12:02 Gaston # (Auto) 0.5 X10*3/uL (0.1-1.2) 03/03/23 12:02 Eos # (Auto) 0.1 X10*3/uL (0.0-0.4) 03/03/23 12:02 Baso # (Auto) 0.0 X10*3/uL (0.0-0.2) 03/03/23 12:02 Abs Immat Gran (auto) 0.02 X10*3/uL (0.00-0.03) 03/03/23 12:02 Absolute Neuts (auto) 3.8 x10*3/uL (2.0-8.3) 03/03/23 12:02 Absolute Nucleated RBC 0.000 X10*3/uL (0.0-0.012) 03/03/23 12:02 Nucleated RBC % (auto) 0.0 /100WBC (0.0-0.2) 03/03/23 12:02 PT 12.1 SEC (11.1-13.3) 03/03/23 12:02 INR 1.0 (0.9-1.1) 03/03/23 12:02 APTT 30.6 SEC (26.0-36.4) 03/03/23 12:02 Sodium 139 mmol/L (135-145) 03/03/23 12:02 Potassium 4.0 mmol/L (3.3-5.1) 03/03/23 12:02 Chloride 104 mmol/L (96-108) 03/03/23 12:02 Carbon Dioxide 30 mmol/L (22-29) H 03/03/23 12:02 Anion Gap 9 (12-20) L 03/03/23 12:02 BUN 14 mg/dL (9-16) 03/03/23 12:02 Creatinine 0.87 mg/dL (0.5-1.4) 03/03/23 12:02 Estim Creat Clear Calc 85.4 03/03/23 12:02 Estimated GFR > 60 03/03/23 12:02 Random Glucose 92 mg/dL (60-115) 03/03/23 12:02 Calcium 9.8 mg/dL (8.4-10.2) D 03/03/23 12:02 Magnesium 2.2 mg/dL (1.6-2.6) 03/03/23 12:02 Total Bilirubin 0.4 mg/dL (0.0-1.0) 03/03/23 12:02 AST 20 U/L (5-31) 03/03/23 12:02 ALT 22 U/L (0-31) 03/03/23 12:02 Alkaline Phosphatase 91 U/L (39-117) 03/03/23 12:02 Troponin I High Sens < 2.7 ng/L (<3.5-17.0) 03/04/23 10:18 Total Protein 7.8 g/dL (6.5-8.0) 03/03/23 12:02 Albumin 4.1 g/dL (3.5-5.0) 03/03/23 12:02 Urine Color Yellow 03/03/23 12:28 Urine Appearance Clear 03/03/23 12:28 Urine pH 5.5 (5.0-9.0) 03/03/23 12:28 Ur Specific Chapman 1.020 (1.005-1.025) 03/03/23 12:28 Urine Protein Negative mg/dL (Neg-Trace) 03/03/23 12:28 Urine Glucose (UA) Negative mg/dL (Negative) 03/03/23 12:28 Urine Ketones Negative mg/dL (Negative) 03/03/23 12:28 Urine Blood Negative (Negative) 03/03/23 12:28 Urine Nitrite Negative (Negative) 03/03/23 12:28 Ur Leukocyte Esterase Negative (Negative) 03/03/23 12:28 Urine Opiates Screen Not Detected (Not Detect) 03/03/23 19:45 Urine Fentanyl Screen Not Detected (Not Detect) 03/03/23 19:45 Ur Barbiturates Screen Not Detected (Not Detect) 03/03/23 19:45 Ur Phencyclidine Scrn Not Detected (Not Detect) 03/03/23 19:45 Ur Amphetamines Screen Not Detected (Not Detect) 03/03/23 19:45 U Benzodiazepines Scrn Not Detected (Not Detect) 03/03/23 19:45 Urine Cocaine Screen Not Detected (Not Detect) 03/03/23 19:45 U Marijuana (THC) Screen POSITIVE (Not Detect) H 03/03/23 19:45 Influenza Type A (PCR) NEGATIVE (Negative) 03/03/23 10:45 Influenza Type B (PCR) NEGATIVE (Negative) 03/03/23 10:45 RSV RNA Qual (PCR) NEGATIVE (Negative) 03/03/23 10:45 SARS-CoV-2 RNA (RT-PCR) NEGATIVE (Negative) 03/03/23 10:45 Impressions Head/Neck CTA 03/03/23 13:28 IMPRESSION: 1. No acute intracranial hemorrhage, mass effect, hydrocephalus, or acute territorial edematous infarction. 2. Age-indeterminate but favored chronic lacunar infarct involving the right caudate nucleus. There are also chronic small bilateral cerebellar infarcts. 3. No arterial high grade stenosis or large vessel occlusion in the head or neck. Brain MRI 03/03/23 21:23 IMPRESSION: 1. No acute intracranial abnormalities. 2. Mild underlying microangiopathy. Chronic lacunar infarcts of the cerebellum and right caudate nucleus. Discharge Plan Discharge Patient Disposition: Home, Self-Care Discharge Diagnosis: chronic CVA, migraines Referrals: Holden Ortiz MD [Primary Care Provider] - 1 Week Jennifer Newton MD [Physician] - 1 Month Discharge Medications: New atorvastatin 80 mg Tablet 80 mg PO BEDTIME Qty: 30 0RF Rx Instructions: Begin after completing clarithromycin aspirin 81 mg Tablet,Chewable 81 mg PO DAILY Qty: 30 0RF sumatriptan succinate 50 mg tablet See Rx Instructions .ROUTE .COMPLEX Qty: 10 0RF Rx Instructions: take 1 tab at onset of headache; if no relief may repeat 1 tab after at least 2 hrs; max = 4 tabs/24 hr Continued cholecalciferol (vitamin D3) 125 mcg (5,000 unit) capsule 125 mcg PO DAILY Qty: 30 2RF vitamin A palmitate 3,000 mcg (10,000 unit) capsule 10,000 unit PO DAILY Qty: 30 1RF thiamine HCl (vitamin B1) 100 mg tablet 100 mg PO DAILY Qty: 30 2RF clarithromycin 500 mg tablet 500 mg PO Q12H Qty: 28 0RF Rx Instructions: FOR 14 DAYS STARTING 02/23 amoxicillin 500 mg capsule 500 mg PO Q12H Rx Instructions: FOR 14 DAYS STARTING 02/22 albuterol sulfate 90 mcg/actuation HFA aerosol inhaler 2 puff inhalation Q4H PRN (Reason: wheezing) fluticasone propionate 50 mcg/actuation spray,suspension 1 spray INTRANASAL DAILY acetaminophen 500 mg Tablet 1,000 mg PO Q6H PRN (Reason: Pain) omeprazole 40 mg capsule,delayed release(DR/EC) 40 mg PO DAILY@0630 melatonin 5 mg tablet 10 mg PO BEDTIME fluticasone propionate [Flovent HFA] 110 mcg/actuation HFA aerosol inhaler 2 puff inhalation BID ibuprofen 800 mg tablet 800 mg PO TID PRN (Reason: Pain) loratadine 10 mg tablet 10 mg PO DAILY lisinopril-hydrochlorothiazide 20-25 mg tablet 1 tab PO DAILY Discontinued atorvastatin 20 mg tablet 20 mg PO DAILY Discharge Orders: Discharge Order (Routine); Ordered 03/04/23 Ordered By: Ashley Monique Activity on Discharge: As tolerated Stand Alone Forms: Patient Portal Discharge page Care Plan Goals: stroke prevention, migraine management Health Concerns: chronic CVA, complex migraines Plan of Treatment: take aspirin 81 mg daily increase atorvastatin from 20 to 80 mg daily but don't start until you are done with clarithromycin for H pylori treatment identify and avoid migraine triggers trial of sumatriptan 50 mg for migraines follow up with Neurology in 1 month continue efforts at weight loss Please follow up with your primary care doctor within 1 week. Return to the hospital if you experience recurrent or worsening symptoms. Assessment: See Discharge Summary.
[2023-03-04 11:07] VITALS: BP 126/76; PULSE 78; RESP 18; TEMP 36.2; O2SAT 97
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
--- NOTE | 2023-03-04 12:49 | PM.NEUROCN ---
History of Present Illness Data of Consult Service Date: 03/04/23 Primary Care Provider: Holden Blevins MD [facility] Reason for consult: Facial numbness 53 years old woman with underlying history of obesity, hypertension, and headaches. Recently she was having more frequent headaches. Yesterday she had an episode of left-sided facial numbness associated with headache. It lasted for about an hour 2. Later she had another episode that was somewhat brief but also involved headache. There was no recent cold or flu-like illness or trauma or ear infection or ear pain. There was no history of any recent dental workup. Review of Systems Review of Systems: As per HPI [facility] Past Medical History Medical History BMI 38.0-38.9,adult Obesity Insomnia Hyperlipidemia GERD (gastroesophageal reflux disease) Fibromyalgia Anxiety Depression Asthma Hypertension Family History Family History Mother No problems noted. Father Cancer Son No problems noted. Daughter No problems noted. Son No problems noted. Daughter No problems noted. Daughter No problems noted. Social History Social History Household Members: Children Housing: House Alcohol intake: current Alcohol intake frequency: holidays/special occasions only Patient Tobacco Use Status: Current someday Tobacco user Tobacco use type: Cigarette Cigarettes Per Day: 4 Second Hand Smoke Exposure: No Substance Use Type: Marijuana service: No Current occupational status: unemployed Meds Allergies Allergy/AdvReac Type Severity Reaction Status Date / Time almond Allergy Shortness Verified 03/03/23 10:29 of Breath latex Allergy Unknown Verified 01/15/23 10:37 Active Medications: Current Medications Acetaminophen (Acetaminophen 325 Mg Tablet) 650 mg PO Q6H PRN PRN Reason: Pain, Mild (Pain Scale 1-3) Last Admin: 03/03/23 18:24 Dose: 650 mg Albuterol Sulfate (Albuterol Sulfate 90 Mcg 8 Gm Inhaler) 2 puff INHALE Q4H PRN PRN Reason: wheezing Amoxicillin (Amoxicillin 500 Mg Capsule) 500 mg PO Q12H [facility] Last Admin: 03/04/23 07:43 Dose: 500 mg Aspirin (Aspirin 81 Mg Tab.Chew) 81 mg PO DAILY [facility] Last Admin: 03/04/23 07:45 Dose: 81 mg Atorvastatin Calcium (Atorvastatin Calcium 80 Mg Tablet) 80 mg PO BEDTIME [facility] Last Admin: 03/03/23 20:34 Dose: 80 mg Diphenhydramine HCl (Diphenhydramine Hcl 25 Mg Capsule) 25 mg PO Q4H PRN PRN Reason: Itching Last Admin: 03/03/23 22:57 Dose: 25 mg Enoxaparin Sodium (Enoxaparin Sodium 40 Mg/0.4 Ml Syringe) 40 mg SUBCUT Q24H [facility] Last Admin: 03/03/23 18:25 Dose: 40 mg Fluticasone Propionate (Fluticasone Propionate 100 Mcg Blst.W.Dev) 2 puff INHALE RBID [facility] Last Admin: 03/04/23 08:01 Dose: 2 puff Hydrochlorothiazide (Hydrochlorothiazide 25 Mg Tablet) 25 mg PO DAILY [facility] Last Admin: 03/04/23 08:44 Dose: 25 mg Lisinopril (Lisinopril 20 Mg Tablet) 20 mg PO DAILY [facility] Last Admin: 03/04/23 08:44 Dose: 20 mg Loratadine (Loratadine 10 Mg Tablet) 10 mg PO DAILY [facility] Last Admin: 03/04/23 07:45 Dose: 10 mg Melatonin (Melatonin 3 Mg Tablet) 9 mg PO BEDTIME [facility] Pt Own ( Clarithromycin 500 Mg Tablet) 500 mg PO Q12H [facility] Last Admin: 03/04/23 07:43 Dose: 500 mg Omeprazole (Omeprazole 40 Mg Capsule.Dr) 40 mg PO DAILY@0630 [facility] Last Admin: 03/04/23 07:43 Dose: 40 mg Ondansetron HCl (Ondansetron Hcl 4 Mg/2 Ml Vial) 4 mg IVPUSH Q8H PRN PRN Reason: Nausea and Vomiting Sodium Chloride (0.9 % Sodium Chloride Flush 3 Ml Syringe) 3 ml IVFLUSH QSHIFT [facility] Last Admin: 03/04/23 07:48 Dose: 3 ml Thiamine HCl (Thiamine Hcl 100 Mg Tablet) 100 mg PO DAILY [facility] Last Admin: 03/04/23 07:45 Dose: 100 mg Vitamin D (Cholecalciferol (Vitamin D3) 25 Mcg Tablet) 125 mcg PO DAILY [facility] Last Admin: 03/04/23 07:45 Dose: 125 mcg Home Medications Medication Instructions Recorded Confirmed Last Taken Type fluticasone propionate 110 2 puff inhalation BID 12/22/22 03/03/23 Unknown History mcg/actuation HFA aerosol inhaler (Flovent HFA) ibuprofen 800 mg tablet 800 mg PO TID PRN Pain 12/22/22 03/03/23 Unknown History lisinopril 20 1 tab PO DAILY 12/22/22 03/03/23 Unknown History mg-hydrochlorothiazide 25 mg tablet loratadine 10 mg tablet 10 mg PO DAILY 12/22/22 03/03/23 Unknown History melatonin 5 mg tablet 10 mg PO BEDTIME 12/22/22 03/03/23 Unknown History acetaminophen 500 mg tablet 1,000 mg PO Q6H PRN Pain 03/03/23 03/03/23 Unknown History albuterol sulfate 90 mcg/actuation 2 puff inhalation Q4H PRN wheezing 03/03/23 03/03/23 Unknown History aerosol inhaler amoxicillin 500 mg capsule 500 mg PO Q12H 03/03/23 03/03/23 03/03/23 08:00 History fluticasone propionate 50 1 spray intranasal DAILY 03/03/23 03/03/23 Unknown History mcg/actuation nasal spray,suspension omeprazole 40 mg capsule,delayed 40 mg PO DAILY@0630 03/03/23 03/03/23 Unknown History release Physical Exam Vital Signs: Vital Signs: Last Vital Signs Temp 97.1 F 03/04/23 11:07 Pulse 78 03/04/23 11:07 Resp 18 03/04/23 11:07 BP 126/76 03/04/23 11:07 Pulse Ox 97 03/04/23 11:07 O2 Del Method Room Air 03/04/23 11:07 BMI result Body Mass Index 38.4 Neuro: Other: He is alert and awake with normal spontaneity of speech fluency comprehension and anxious affect. Face is symmetrical. Visual us are full extraocular muscles are intact. There is no obvious focal weakness. Deep tendon reflexes are trace to absent. Speech is normal. Results Labs 03/03/23 12:02 03/03/23 12:02 Labs: Urine 03/03/23 Range/Units 12:28 Urine Color Yellow Urine Appearance Clear Urine pH 5.5 (5.0-9.0) Ur Specific Dewitt 1.020 (1.005-1.025) Urine Protein Negative (Neg-Trace) mg/dL Urine Glucose (UA) Negative (Negative) mg/dL Noncontrast head CT CTA and MRI of brain were reviewed. There was no acute pathology. Couple of small ischemic lesions were noted specially in right caudate and right cerebellum and a small of 1 in left deep parietal white matter. No significant vascular lesion was noted. Assessment and Plan (1) Migraine with aura: Qualifiers: Status migrainosus presence: without status migrainosus Intractability: not intractable Qualified Code(s): G43.109 - Migraine with aura, not intractable, without status migrainosus Status: Acute 53 years old woman with migraine with aura. At this time there is no acute stroke but her imaging has revealed few small ischemic lesions. Sometime patients with migraine without aura specially female patients her at risk for stroke. Recommendations for her are not to small, not to use harm on contraception specially containing estrogen, and control other vascular risk factors. A baby aspirin daily is recommended. Blood pressure control and statin are recommended. As far as headaches are concerned, the could be treated with p.r.n. sumatriptan. If the become more frequent she could take a preventive medicines of such as propanolol or topiramate. Procedures Date of Service Date of Service: 03/04/23
[2023-03-04 13:37] LABS: Troponin-I High Sensitivity < 2.7 ng/L (<3.5-17.0)
[2023-03-04] MEDS: SUMAtriptan succinate 50 MG TABLET PO (14:59)
[2023-03-04 15:51] VITALS: BP 117/56; PULSE 102; RESP 22; TEMP 36.7; O2SAT 92
[2023-03-04] MEDS: Enoxaparin Sodium 40 MG/0.4 ML SYRINGE SUBCUT (17:57)
[2023-03-05 00:19] LABS: A. Phagocytphilium DNA,RT-PCR NOT DETECTED (NOT DETECTED); Babesia Microti DNA, RT-PCR NOT DETECTED (NOT DETECTED); Borrelia Miyamotoi,DNA RT-PCR NOT DETECTED (NOT DETECTED); E.Chaffeensis DNA RT-PCR NOT DETECTED (NOT DETECTED); Lyme(Borrelia ssp)DNA RT-PCR NOT DETECTED (NOT DETECTED)
== END 2023-03-04 18:30 | disposition home or self-care (01) ==
LOC: HO.ED 14:36 → HO.EDOVER 15:21 → HO.IMC 17:08
PROVIDERS: Physician Assistant Medical; Admitting Provider Family Medicine; Emergency Provider Emergency Medicine; PCP Internal Medicine; Visit Provider Family Medicine
DX: G43.109 Migraine with aura, not intractable, without status migrainosus (principal); Z86.73 Personal history of transient ischemic attack (TIA), and cerebral infarction without residual deficits; R20.2 Paresthesia of skin; J45.30 Mild persistent asthma, uncomplicated; I10 Essential (primary) hypertension; Z11.52 Encounter for screening for COVID-19; Z20.822 Contact with and (suspected) exposure to COVID-19; Z79.899 Other long term (current) drug therapy; R20.0 Anesthesia of skin; A04.8 Other specified bacterial intestinal infections; F39 Unspecified mood [affective] disorder; E55.9 Vitamin D deficiency, unspecified; E50.9 Vitamin A deficiency, unspecified; E51.9 Thiamine deficiency, unspecified
CPT/HCPCS: 0241U; 36415; 70496; 70498; 70551; 80053; 80307; 81003; 83735; 84484; 85025; 85610; 85730; 87468; 87469; 87478; 87484; 87798; 92523; 93005; 93306; 96372; 96374; 97162; 97165; 99222; 99285; J1650; J2405; Q9957; Q9967

== ENCOUNTER 2023-03-03 15:16 | Outpatient (BNV) | payer OTHER, SELFPAY | END 2023-03-04 07:00 | PROVIDERS: Admitting Provider Family Medicine; Emergency Provider Emergency Medicine; PCP Internal Medicine; Visit Provider Internal Medicine Cardiovascular Disease | DX: I47.10 Supraventricular tachycardia, unspecified (principal) | CPT/HCPCS: 93010; 93306 ==

== ENCOUNTER → 2023-03-03 15:16 | Outpatient (BNV) | payer OTHER, SELFPAY | PROVIDERS: Admitting Provider Family Medicine; Emergency Provider Emergency Medicine; PCP Internal Medicine; Visit Provider Family Medicine | DX: G43.109 Migraine with aura, not intractable, without status migrainosus (principal); Z86.73 Personal history of transient ischemic attack (TIA), and cerebral infarction without residual deficits | CPT/HCPCS: 99223; 99239 ==

== ENCOUNTER 2023-03-05 08:23 | Outpatient (AMB) | payer OTHER, SELFPAY ==
--- NOTE | 2023-03-05 10:47 | MHC.OFFVISWM ---
Intake VS Expanded 03/05/23 12:37 Height 5 ft 3 in Weight 215 lb 6 oz BMI 38.1 Body Fat % 43.3 Body Fat Mass 93.3 Fat Free Mass 122.2 Visceral Fat Rating 12 Body Water % 40.4 Body Water Mass 87.1 Basal Metabolic Rate/Score 1,699 Intake Visit Reasons: TV Follow Up SWL Allergies almond Allergy (Verified 03/03/23 10:29) Shortness of Breath latex Allergy (Verified 01/15/23 10:37) Unknown HPI TV Follow Up SWL HPI Details Start time: 10.30am, End time: 11am ?I spent 25 minutes speaking with the patient on the phone plus an additional 5 minutes reviewing and updating records for a total of 30 minutes HPI Comments History of Present Illness Details Overall weight loss: 8.6lbs, Is doing 2 Isopure shakes (1/2 scoop in water), Louis protein bars (17gr), dinner (8 forks of protein and 8 forks of salad or vegetables) Exercise: bike for 300 calories [facility], [facility] Medical History (Updated 03/05/23 @ 12:41 by Tung Salgaod MD) BMI 38.0-38.9,adult Obesity Insomnia Hyperlipidemia GERD (gastroesophageal reflux disease) Fibromyalgia Anxiety Depression Asthma Hypertension Family History Mother No problems noted. Father Cancer Son No problems noted. Daughter No problems noted. Son No problems noted. Daughter No problems noted. Daughter No problems noted. Social History Household Members: Children Housing: House Alcohol intake: current Alcohol intake frequency: holidays/special occasions only Patient Tobacco Use Status: Current someday Tobacco user Tobacco use type: Cigarette Cigarettes Per Day: 4 Second Hand Smoke Exposure: No Substance Use Type: Marijuana service: No Current occupational status: unemployed Physical Exam Vital Signs: BMI result Body Mass Index 38.1 Assessment & Plan Assessment & Plan (1) Obesity: Code(s): E66.9 - Obesity, unspecified Plan: 1. Change nutritional plan to 2 Isopure protein shakes (HALF scoop each in 8oz water), TWO Amali protein bars and one meal (8 forks of protein and 8 forks of salad or vegetables) 2. continue stationary bike for 300 calories per day, daily 3. Buy a body composition scale and send measurements weekly Telehealth Telehealth Location of provider rendering services: practice address Location of patient: address on file Patient Identification confirmed using: Name, : Yes Telehealth method: voice only Patient verbally consented to treatment: Yes Patient verbally consented to billing insurance company: Yes Patient informed of any privacy concerns related to visit: Yes Minutes spent on Phone/Video with Pt.: 30 Coding Level of Care Code Tele Est Pt Level 4 (28033) Diagnoses Obesity E66.9 Time Spent (min) 30
[2023-03-05 12:37] VITALS: BMI 38.1
== END 2023-03-05 12:44 | disposition home or self-care (01) ==
LOC: HO.HBS 08:23
PROVIDERS: PCP Internal Medicine; Visit Provider Surgery
DX: E66.9 Obesity, unspecified (principal); Z68.38 Body mass index [BMI] 38.0-38.9, adult
CPT/HCPCS: 99443

== ENCOUNTER → 2023-03-05 08:23 | Outpatient (BNVA) | payer OTHER, SELFPAY | PROVIDERS: PCP Internal Medicine; Visit Provider Surgery ==

== ENCOUNTER 2023-03-08 16:06 | Outpatient (AMB) | payer OTHER, SELFPAY ==
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
== END 2023-03-08 16:14 | disposition home or self-care (01) ==
LOC: HO.HBS 16:06
PROVIDERS: PCP Internal Medicine; Visit Provider Dietitian, Registered
DX: Z68.38 Body mass index [BMI] 38.0-38.9, adult (principal)

== ENCOUNTER → 2023-03-08 16:06 | Outpatient (BNVA) | payer OTHER, SELFPAY | PROVIDERS: PCP Internal Medicine; Visit Provider Dietitian, Registered | DX: E66.9 Obesity, unspecified (principal); Z68.38 Body mass index [BMI] 38.0-38.9, adult | CPT/HCPCS: 97802 ==

== ENCOUNTER 2023-03-11 13:03 | Outpatient (AMB) | payer OTHER, SELFPAY ==
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
== END 2023-03-11 13:35 | disposition home or self-care (01) ==
LOC: HO.HBST 13:04
PROVIDERS: PCP Internal Medicine; Visit Provider Counselor Mental Health
DX: F41.9 Anxiety disorder, unspecified (principal); E66.9 Obesity, unspecified; G45.9 Transient cerebral ischemic attack, unspecified
CPT/HCPCS: 90791

== ENCOUNTER → 2023-03-11 13:03 | Outpatient (BNVA) | payer OTHER, SELFPAY | PROVIDERS: PCP Internal Medicine; Visit Provider Counselor Mental Health ==

== ENCOUNTER → 2023-03-26 08:14 | Outpatient (BNVA) | payer OTHER, SELFPAY | PROVIDERS: PCP Internal Medicine; Visit Provider Surgery ==

== ENCOUNTER 2023-03-31 13:14 | Outpatient (AMB) | payer OTHER, SELFPAY ==
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
== END 2023-03-31 15:15 | disposition home or self-care (01) ==
PROVIDERS: PCP Internal Medicine; Visit Provider Dietitian, Registered
DX: E66.9 Obesity, unspecified (principal)

== ENCOUNTER 2023-03-31 13:14 | Outpatient (AMB) | payer OTHER, SELFPAY ==
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
== END 2023-03-31 15:39 | disposition home or self-care (01) ==
PROVIDERS: PCP Internal Medicine; Visit Provider Counselor Mental Health
DX: F41.9 Anxiety disorder, unspecified (principal); E66.9 Obesity, unspecified; G45.9 Transient cerebral ischemic attack, unspecified
CPT/HCPCS: 90834

== ENCOUNTER → 2023-03-31 13:14 | Outpatient (BNVA) | payer OTHER, SELFPAY | PROVIDERS: PCP Internal Medicine; Visit Provider Dietitian, Registered | DX: E66.9 Obesity, unspecified (principal) | CPT/HCPCS: 97803 ==

== ENCOUNTER → 2023-04-14 08:20 | Outpatient (BNVA) | payer OTHER, SELFPAY | PROVIDERS: PCP Internal Medicine; Visit Provider Physician Assistant ==

== ENCOUNTER → 2023-04-20 08:53 | Outpatient (REF) | payer OTHER, SELFPAY | LOC: HO.SL 08:53 | PROVIDERS: PCP Internal Medicine; Visit Provider Surgery | DX: E66.9 Obesity, unspecified (principal); I10 Essential (primary) hypertension; J45.909 Unspecified asthma, uncomplicated; K21.9 Gastro-esophageal reflux disease without esophagitis; E78.5 Hyperlipidemia, unspecified; R06.83 Snoring | CPT/HCPCS: 95806 ==

== ENCOUNTER → 2023-04-20 12:00 | Outpatient (BNV) | payer OTHER, SELFPAY | PROVIDERS: PCP Internal Medicine; Visit Provider Internal Medicine | DX: R06.83 Snoring (principal) | CPT/HCPCS: 95806 ==

== ENCOUNTER → 2023-04-21 08:26 | Outpatient (BNVA) | payer OTHER, SELFPAY | PROVIDERS: PCP Internal Medicine; Visit Provider Physician Assistant Surgical ==

== ENCOUNTER 2023-05-11 15:33 | Outpatient (AMB) | payer OTHER, SELFPAY ==
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
== END 2023-05-11 15:45 | disposition home or self-care (01) ==
LOC: HO.HBST 15:33
PROVIDERS: PCP Internal Medicine; Visit Provider Counselor Mental Health
DX: F41.9 Anxiety disorder, unspecified (principal); E66.9 Obesity, unspecified; G45.9 Transient cerebral ischemic attack, unspecified
CPT/HCPCS: 99499

== ENCOUNTER → 2023-05-11 15:33 | Outpatient (BNVA) | payer OTHER, SELFPAY | PROVIDERS: PCP Internal Medicine; Visit Provider Counselor Mental Health ==